=== PATIENT | male | born 1970 | race Caucasian/White ===

== ENCOUNTER → 2016-12-07 | Outpatient (CLI) | payer BC ==
--- NOTE | 2016-12-07 19:05 | MR ---
EXAMINATION TYPE: MR knee LT wo con DATE OF EXAM: 12/07/2016 6:28 PM COMPARISON: Plain film November 2006 HISTORY: Lt knee pain anterior/lateral since Aug 2016, no trauma TECHNIQUE: Multiplanar, multisequence imaging of the left knee is performed without IV contrast. FINDINGS: MEDIAL MENISCUS: There is some increased signal within the posterior horn of the medial meniscus with out clear communication to the articular surface, some linear increased signal at the body level reynolds ck is thought likely to extend to the articular surface, there is some pseudoextrusion LATERAL MENISCUS: Anterior and posterior horns are intact without tear. CRUCIATE LIGAMENTS: The anterior and posterior cruciate ligaments are intact and unremarkable. COLLATERAL LIGAMENTS: The medial collateral ligament and lateral collateral ligament complex are inta ct and unremarkable. EXTENSOR MECHANISM: Visualized quadriceps and patellar tendons are intact. EFFUSION: No significant suprapatellar joint effusion. POPLITEAL CYST: No popliteal/mckinney cyst. TRICOMPARTMENT SPACES: Maintained CARTILAGE: No significant chondromalacia is evident. BONE MARROW SIGNAL: Abnormal increased signal present within the lateral femoral condyle, small subch ondral defect is present at the patellofemoral joint with low signal rim suggesting sclerosis OTHER: No additional significant abnormality is appreciated. IMPRESSION: Findings suggest posttraumatic change as described with a subchondral area of bone marrow edema, subc hondral defect, correlate for history of trauma, difficult to exclude a medial meniscus tear.
== END | disposition home or self-care (01) ==
LOC: RADMRIMAIN 17:45
PROVIDERS: ATTEND Orthopaedic Surgery
DX: M25.562 Pain in left knee (principal)

== ENCOUNTER → 2017-05-10 | Outpatient (CLI) | payer BC ==
[2017-05-10 16:08] LABS: EKG EKG PERFORMED
[2017-05-10 16:29] LABS: Basophils % (A) 0 %; CH 30.9; Eosinophils # (A) 0.2 k/uL (0-0.7); Eosinophils % (A) 2 %; HCT 48.4 % (39.0-53.0); HDW 2.35; HGB 16.3 gm/dL (13.0-17.5); Luc # (Auto) 0.28; Luc % (Auto) 3; Lymphocytes # (A) 2.6 k/uL (1.0-4.8); Lymphocytes % (A) 30 %; MCH 30.7 pg (25.0-35.0); MCHC 33.6 g/dL (31.0-37.0); MCV 91.3 fL (80.0-100.0); Mean Platelet Volume 8.5; Monocytes # (A) 0.7 k/uL (0-1.0); Monocytes % (A) 9 %; Neutrophils # (A) 4.8 k/uL (1.3-7.7); Neutrophils % (A) 56 %; RDW 12.7 % (11.5-15.5); WBC 8.5 k/uL (3.8-10.6); WBC (Perox) 8.08
[2017-05-10 16:48] LABS: Anion Gap 11 mmol/L; Carbon Dioxide 28 mmol/L (22-30); Chloride 104 mmol/L (98-107); Potassium 4.5 mmol/L (3.5-5.1); Sodium 143 mmol/L (137-145)
== END | disposition home or self-care (01) ==
LOC: LABPAT 15:59
PROVIDERS: ATTEND Orthopaedic Surgery
DX: Z01.818 Encounter for other preprocedural examination (principal)
CPT/HCPCS: 36415; 80051; 85025; 93005

== ENCOUNTER 2017-05-27 09:41 | Day surgery (SDC) | payer BC ==
[2017-05-20 15:48] VITALS: BMI 36.5
--- NOTE | 2017-05-27 07:14 | P.HPOR ---
History of Present Illness H&P Date: 05/27/17 Chief Complaint: 47-year-old patient seen with progressive left knee pain. Past Medical History Past Medical History: Hyperlipidemia, Sleep Apnea/CPAP/BIPAP History of Any Multi-Drug Resistant Organisms: None Reported Past Surgical History: Orthopedic Surgery Additional Past Surgical History / Comment(s): rt knee arthroscopy Past Anesthesia/Blood Transfusion Reactions: No Reported Reaction Smoking Status: Never smoker - Past Family History Father Family Medical History: Cancer Medications and Allergies Home Medications Medication Instructions Recorded Confirmed Type Simvastatin [Zocor] 5 mg PO HS 05/20/17 05/20/17 History Allergies Allergy/AdvReac Type Severity Reaction Status Date / Time No Known Allergies Allergy Verified 05/20/17 15:39 Physical Examination Osteopathic Statement: *. No significant issues noted on an osteopathic structural exam other than those noted in the History and Physical/Consult. Range of motion -3-95. Mild intra-articular effusion. Tenderness medial joint line. Positive medial Anne's. Crepitus along the medial patellofemoral compartments with range of motion. Ligaments are stable. Hip rotations without pain. Distal neurovascular exam is intact. Results X-ray left knee 04/28/17 mild osteoarthritis MRI left knee 12/07/16 abnormal signal medial meniscus Assessment and Plan Plan: Assessment: Internal drainage left knee with medial meniscal tear Plan: Arthroscopy left knee with partial meniscectomy and debridement
[~2017-05-27 09:41] MED LIST: DEXAMETHASONE SOD PHOSPHATE 10 MG/ML 1 ML VIAL IV ONE; LACTATED RINGERS 1,000 ML IV SCH; MIDAZOLAM 2 MG/2 ML VIAL IV PRN; ONDANSETRON 4 MG/2 ML VIAL IVP ONE; ceFAZolin 2 GM in SODIUM CHLORIDE 0.9% 100 ML IVPB ONE
[2017-05-27] MEDS ORDERED: LIDOCAINE 1% 20 ML VIAL (10MG/ML) FOR IV START INTRADERMA ONE (11:25)
[2017-05-27] MEDS ORDERED: MIDAZOLAM 2 MG/2 ML VIAL ONE (12:07)
[2017-05-27] MEDS ORDERED: fentaNYL (PF) 50 MCG/ML 2 ML AMP ONE (12:07)
[2017-05-27] MEDS ORDERED: PROPOFOL 10 MG/ML 20 ML VIAL IV ONE (12:07)
[2017-05-27] MEDS ORDERED: LIDOCAINE 1% INJ 10MG/ML (20 ML MDV) ONE (12:07)
[2017-05-27] MEDS ORDERED: BUPIVACAIN-EPI 0.25%-1:200,000 30 ML VIAL INTRAARTIC ONE (12:07)
[2017-05-27] MEDS ORDERED: KETOROLAC 30 MG/ML 1 ML VIAL ONE (12:07)
[2017-05-27] MEDS ORDERED: HYDROmorphone (PF) 1 MG/ML ONE (12:07)
--- NOTE | 2017-05-27 13:06 | P.OP ---
Date of Procedure: 05/27/17 Preoperative Diagnosis: Internal derangement left knee Postoperative Diagnosis: 1. Tear medial meniscus left knee 2. Grade 2/3 chondromalacia medial femoral condyle left knee 3. Grade 4 chondromalacia femoral sulcus left knee 4. Loose body left knee 5. Reactive synovitis medial and suprapatellar compartments left knee Procedure(s) Performed: 1. Arthroscopic partial medial meniscectomy left knee 2. Arthroscopic chondroplasty medial femoral condyle left knee 3. Arthroscopic chondroplasty femoral sulcus left knee with microfracture 4. Arthroscopic removal loose body left knee 5. Arthroscopic partial synovectomy medial and suprapatellar compartments left knee Implants: Anesthesia: GETA, local Surgeon: Edgard Carmona Estimated Blood Loss (ml): 10 Pathology: none sent Condition: stable Disposition: PACU Indications for Procedure: 47-year-old patient seen with progressive left knee pain. After treatment options were discussed, he elected to proceed with arthroscopy. Operative Findings: see description of procedure Description of Procedure: Patient was taken to the operative suite. Patient underwent a general anesthetic by the department of anesthesia. Patient was given preoperative antibiotics. The left lower extremity was placed in a well-padded arthroscopic leg smith. The left leg was prepped and draped in the normal sterile orthopedic fashion. A lateral parapatellar and suprapatellar incision was made. Trochars were inserted. Arthroscopy was initiated. Suprapatellar pouch revealed thick reactive synovitis. The patellofemoral joint appeared to articulate congruently. There was an area of grade 4 chondromalacia of the lateral femoral sulcus with bony exposure and large osteochondral tears present. The scope was guided into the medial gutter. No loose bodies or plica were identified. The scope was then guided into the medial compartment. A medial parapatellar incision was made. Trocar inserted followed by probe. I immediately encountered a loose body measuring 1 cm x 1 cm. I introduced a loose body forceps and was able to extract without difficulty. No additional loose bodies were noted in the medial compartment. There was a radial tear posterior horn medial meniscus. An area of grade 2/3 chondromalacia medial femoral condyle with some osteochondral tears present. There was reactive synovitis anteriorly. I now performed a partial medial meniscectomy down to stable tissue. A chondroplasty of the medial femoral condyle was performed followed by partial synovectomy. The residual meniscus and osteochondral surface was stable. Scope and probe were then guided into the intercondylar notch. Cruciates were identified, probed and found to be able. The scope and probe were then guided into lateral compartment. Lateral meniscus was probed and found to be stable. Mild grade 1 chondromalacia changes lateral compartment with no osteochondral tears. No loose bodies or reactive synovitis. The scope was in guided back into the suprapatellar compartment. I introduced a motorized shaver into the super patellar compartment debriding out some piecemeal fragments of meniscus. I performed a chondroplasty of that femoral sulcus getting down to good peripheral osteochondral tissue. I performed a partial synovectomy. At this point I decided post with microfracture to that area of exposed bone in the lateral femoral sulcus. A microfracture was performed without difficulty. The area was again cleaned up with a motorized shaver. The residual osteochondral surface was again found to be stable. I took more look on the entire knee, no residual debris or loose bodies were identified. Instruments were now removed from the joint. The joint was infiltrated with .25% Marcaine. Steri-Strips were applied to the portal sites. Sterile dressings were applied. The patient was placed into a JORDYN hose. No tourniquet was utilized. The patient was awakened, transferred to a bed and taken to recovery stable satisfactory condition.
[2017-05-27 13:10] VITALS: TEMP 97.7
[2017-05-27] MEDS: HYDROmorphone 1 MG/ML 1 ML SYRINGE IVP PRN ×2 (13:33→13:41)
[2017-05-27] MEDS ORDERED: LACTATED RINGERS 1,000 ML IV ONE (14:18)
[2017-05-27] MEDS ORDERED: HYDROcodone/APAP 7.5-325MG 1 EACH TAB PO ONE (14:30)
[2017-05-27 15:28] VITALS: BP 121/81; PULSE 79; RESP 18
== END 2017-05-27 15:49 | disposition home or self-care (01) ==
LOC: OR 09:41
PROVIDERS: ATTEND Orthopaedic Surgery
DX: S83.242A Other tear of medial meniscus, current injury, left knee, initial encounter (principal); X58.XXXA Exposure to other specified factors, initial encounter; M94.262 Chondromalacia, left knee; M23.42 Loose body in knee, left knee; M65.862 Other synovitis and tenosynovitis, left lower leg; E78.5 Hyperlipidemia, unspecified; G47.33 Obstructive sleep apnea (adult) (pediatric); Z99.89 Dependence on other enabling machines and devices; Z79.899 Other long term (current) drug therapy
CPT/HCPCS: 29881; 29879; J1100; J0690; J2405; J1170

== ENCOUNTER → 2018-07-21 | Outpatient (CLI) | payer BC ==
--- NOTE | 2018-07-21 17:46 | PN ---
PROGRESS NOTE DATE OF SERVICE: 07/21/2018 48-year-old gentleman has been followed [facility] for treatment of obstructive sleep apnea-hypopnea syndrome. Patient continued to use his CPAP equipment every night for the whole night. Occasionally, according to his , he has snoring. He increased his weight on about 47 pounds compared with the weight 2 years ago. [place] Sleepiness Scale today is 7, which is in normal range. I checked his CPAP unit. CPAP pressure is 12 cm of water. Usage is 100% of the time for more than 4 hours. Average usage is 7.2 hours. Leak is 10 L/minutes which is normal range. Apnea-hypopnea index 1.1, which is perfect. MEDICATIONS: Testosterone injections 2 times per month, simvastatin, atenolol, doxepin. Since June of 2017, the patient started to increase his weight and evaluation by primary care physician showed low level of testosterone. Subsequently he is now on replacement of testosterone with 2 injection per months. PHYSICAL EXAM: Patient in no distress. BP 142/92, HR 62, RR 16, height 5 feet 8 inches, weight 267, BMI 40.5, temperature 98.7, oxygen saturation on room air 95%. Oropharynx: Extremely low position of soft palate. ABDOMEN: Obese. Neck: Supple, no JVD. Thyroid is not palpable. LUNGS Clear to percussion and to auscultation. Good air exchange. No wheezing or rhonchi. HEART S1, S2 regular. No murmurs, gallops, or rubs. ABDOMEN: Obese. Soft and nontender. Bowel sounds are present. No organomegaly appreciated. EXTREMITIES No clubbing or cyanosis. 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 Cranial nerves 2 to 7 intact. There is no fasciculation or atrophy. noted. No focal deficits observed. Neck 19 inches in circumference. IMPRESSION: 1. Obstructive sleep apnea-hypopnea syndrome. Patient demonstrated 100% compliance with treatment benefitting from treatment. 2. Obesity, patient increased his weight on 47 pounds since previous visit. 3. Low level of testosterone on testosterone replacement therapy. 4. Hyperlipidemia. 5. Hypertension. PLAN: 1. Patient will continue to use CPAP equipment every night for the whole night. 2. I increased pressure to 13 cm of water. Because of patient's snoring. 3. Aggressive losing weight program. 4. Sleep hygiene with time and for at least 8 hours. 5. No driving if feeling sleepiness. Thank you very much for allowing me to participate in management of your patient. Sincerely, Deondre Starr MD, PhD, FAASM Diplomat of [employer] [place] [place] [employer] Clerical Manager of [facility] [place] MMODL / JOSE LUISN: [id number] /
== END | disposition home or self-care (01) ==
LOC: SLEEP 16:26
PROVIDERS: ATTEND Internal Medicine
DX: G47.33 Obstructive sleep apnea (adult) (pediatric) (principal); E66.9 Obesity, unspecified; E78.5 Hyperlipidemia, unspecified; I10 Essential (primary) hypertension; Z68.41 Body mass index [BMI] 40.0-44.9, adult; Z99.89 Dependence on other enabling machines and devices; Z79.899 Other long term (current) drug therapy

== ENCOUNTER 2019-03-08 17:50 | Inpatient (IN) | payer BC ==
[2019-03-08] MEDS ORDERED: ATORVASTATIN 80 MG TAB PO STA (17:58)
[2019-03-08] MEDS ORDERED: HEPARIN SODIUM,PORCINE 5,000 UNIT/ML 1 ML VIAL IV ONE (18:04)
--- NOTE | 2019-03-08 18:09 | ED ---
Chest Pain HPI - General Chief Complaint: Chest Pain Stated Complaint: Chest Pain Time Seen by Provider: 03/08/19 17:50 Source: patient, family, EMS, RN notes reviewed Mode of arrival: EMS Limitations: no limitations - History of Present Illness Initial Comments: This a 49-year-old male with essentially benign past medical history but a family history significant for heart disease who had the onset while at work today of 08/31 midsternal left chest pain pressure and tight nature he has sweats with it no other symptoms. He finally went to outpatient clinic EKG was performed showing some possibility of ST elevations. He was given 324 aspirin and nitroglycerin with no relief. EMS was called he was transported here for evaluation. In route he was given 2 additional nitroglycerin as well as 100 mg of fentanyl. The pain went from a 08/31-05/01. He still complains of heaviness to his chest. MD Complaint: chest pain - Related Data Home Medications Medication Instructions Recorded Confirmed Anastrozole [Arimidex] 1 mg PO MOTUWETHFR 03/08/19 03/08/19 Sildenafil Citrate [Viagra] 100 mg PO DAILY PRN 03/08/19 03/08/19 Simvastatin [Zocor] 20 mg PO HS 03/08/19 03/08/19 Testosterone Cypionate 200 mg IM Q14D 03/08/19 03/08/19 [Depo-Testosterone] Allergies Allergy/AdvReac Type Severity Reaction Status Date / Time acetaminophen [From [place]] AdvReac Confusion Verified 03/08/19 18:01 hydrocodone [From [place]] AdvReac Confusion Verified 03/08/19 18:01 Review of Systems ROS Statement: Those systems with pertinent positive or pertinent negative responses have been documented in the HPI. ROS Other: All systems not noted in ROS Statement are negative. EKG Findings - EKG Results: EKG: interpreted by ERMD, sinus rhythm (Sinus rhythm rate 71 appear interval 148 worship 80 QT since QTC 360/[address] configuration there is equivocal elevations in leads 2 also V2 V3. This is consistent with the EKG submitted from the clinic as well as acetaminophen by EMS.) Past Medical History Past Medical History: No Reported History History of Any Multi-Drug Resistant Organisms: None Reported Past Surgical History: Orthopedic Surgery Additional Past Surgical History / Comment(s): sylvester knee Past Psychological History: No Psychological Hx Reported Smoking Status: Never smoker Past Alcohol Use History: Rare Past Drug Use History: None Reported General Exam - General Exam Comments Initial Comments: This a well-developed well-nourished awake alert oriented times female he is anxious Limitations: no limitations General appearance: alert, anxious, in distress Head exam: Present: atraumatic, normocephalic, normal inspection Eye exam: Present: normal appearance, PERRL, EOMI. Absent: scleral icterus, conjunctival injection, periorbital swelling ENT exam: Present: normal exam, mucous membranes moist Neck exam: Present: normal inspection. Absent: tenderness, meningismus, lymphadenopathy Respiratory exam: Present: normal lung sounds bilaterally. Absent: respiratory distress, wheezes, rales, rhonchi, stridor Cardiovascular Exam: Present: regular rate, normal rhythm, normal heart sounds. Absent: systolic murmur, diastolic murmur, rubs, gallop, clicks GI/Abdominal exam: Present: soft, normal bowel sounds. Absent: distended, tenderness, guarding, rebound, rigid Extremities exam: Present: normal inspection, full ROM, normal capillary refill. Absent: tenderness, pedal edema, joint swelling, calf tenderness Back exam: Present: normal inspection Neurological exam: Present: alert, oriented X3, CN II-XII intact Psychiatric exam: Present: normal affect, normal mood Skin exam: Present: warm, dry, intact, normal color. Absent: rash Course Vital Signs 03/08/19 03/08/19 03/08/19 17:51 18:11 18:38 Temperature 98.2 F 98.2 F Pulse Rate 75 77 77 Respiratory 18 18 18 Rate Blood Pressure 136/101 139/99 139/99 O2 Sat by Pulse 94 L 96 96 Oximetry - Reevaluation(s) Reevaluation #1: 03/08/19 18:08 court monitor: court monitor was instituted due to the patient's chest pain to rule out dysrhythmia. Patient did have a sinus rhythm of 74 with occasional unifocal PVCs. Reevaluation #2: 03/08/19 18:08 I did call a STEMI alert on this patient and assume his EKG was performed I did discuss the case with Dr. Bueno. Due to the patient's symptoms and the equivocal nature of the EKG the patient will go to [facility] for catheterization. I did discuss this with him and his family. Reevaluation #3: 04/17/19 18:13 Evaluation the patient he states his pain is down to a 4-5/10 in severity. Nitropaste will be ordered Reevaluation #4: 03/08/19 18:55 I did discuss the findings with Dr. Mcallister will be the admitting physician. Critical Care Time Critical Care Time: Yes Critical Care Time: 30 minutes of critical care time which includes initial presentation with history physical labs x-rays discussed with paramedics regarding findings review charting was available including EMS EKG and the EKG submitted from the office. Frequent reevaluation of the patient. Discussion with Dr. Mcallister and Dr. Rashawn peck, some admission orders and documentation of the above. Disposition Clinical Impression: Acute coronary syndrome, ST elevation myocardial infarction (STEMI) Disposition: ADMITTED IP TO THIS HOSP Condition: Fair
[2019-03-08 18:11] LABS: MCHC 33.2 g/dL (31.0-37.0); MCV 90.3 fL (80.0-100.0); Mean Platelet Volume 8.3; Platelet Count 190 k/uL (150-450); RBC 6.31 m/uL (4.30-5.90); RDW 13.7 % (11.5-15.5); WBC 14.3 k/uL (3.8-10.6)
[2019-03-08] MEDS ORDERED: NITROGLYCERIN OINT 1 INCH/GM PACKET TOPICAL STA (18:12)
--- NOTE | 2019-03-08 18:14 | XR ---
EXAMINATION: XR chest 1V portable DATE AND TIME: 03/08/2019 6:08 PM CLINICAL INDICATION: PHH; Chest Pain TECHNIQUE: AP upright portable COMPARISON: None FINDINGS: The overlying soft tissues are prominent. The hemidiaphragms are elevated, consistent with low lung i nflation at the moment of x-ray exposure. Given these 2 factors, the lungs appear to be clear as seen . The pleural spaces are negative. The cardiac silhouette is not enlarged. The skeletal structures and soft tissues are negative for acute findings. IMPRESSION: NO ACUTE PROCESS.
[2019-03-08 18:17] LABS: HGB 18.9 gm/dL (13.0-17.5)
[2019-03-08] MEDS ORDERED: fentaNYL (PF) 50 MCG/ML 2 ML AMP ONE (18:17)
[2019-03-08] MEDS ORDERED: LIDOCAINE 1% INJ 10MG/ML (20 ML MDV) ONE (18:17)
[2019-03-08 18:23] LABS: ALT 42 U/L (21-72); AST 49 U/L (17-59); Albumin 4.8 g/dL (3.5-5.0); Alkaline Phosphatase 87 U/L (38-126); Anion Gap 12 mmol/L; Blood Urea Nitrogen 21 mg/dL (9-20); Calcium 9.7 mg/dL (8.4-10.2); Carbon Dioxide 24 mmol/L (22-30); Chloride 105 mmol/L (98-107); Creatine Kinase 387 U/L (55-170); Glucose 97 mg/dL (74-99); Potassium 4.5 mmol/L (3.5-5.1); Sodium 141 mmol/L (137-145); Total Bilirubin 0.9 mg/dL (0.2-1.3); Total Protein 7.7 g/dL (6.3-8.2)
[2019-03-08] MEDS ORDERED: SODIUM CHLORIDE 0.9% 1,000 ML IV ONE (18:25)
[2019-03-08] MEDS ORDERED: MIDAZOLAM 2 MG/2 ML VIAL IV ONE (18:33)
[2019-03-08] MEDS ORDERED: fentaNYL (PF) 50 MCG/ML 2 ML AMP IV ONE (18:33)
[2019-03-08 18:35] LABS: Creatine Kinase MB 2.4 ng/mL (0.0-2.4); Troponin I <0.012 ng/mL (0.000-0.034)
[2019-03-08] MEDS ORDERED: LIDOCAINE 1% INJ 10MG/ML (20 ML MDV) SQ ONE (18:36)
[2019-03-08] MEDS ORDERED: IOPAMIDOL-370 50ML BTL INJ ONE (18:47)
[2019-03-08] MEDS ORDERED: IOPAMIDOL-370 100ML BTL INJ ONE (18:47)
[2019-03-08] MEDS ORDERED: RX INFO: IV CONTRAST WAS GIVEN 1 EACH MISC MISCELLANE PRN (18:52)
--- NOTE | 2019-03-08 19:40 | CONS ---
CONSULTATION CHIEF COMPLAINT: Chest pain. Raymon is a 49-year-old gentleman with history of dyslipidemia, erectile dysfunction, who presented to hospital complaining of chest pain. He describes it as precordial chest pressure, 4/10 intensity that came on suddenly this afternoon. It persisted, was associated with some difficulty in breathing and diaphoresis. EKG revealed sinus rhythm with nonspecific ST-T wave changes. Due to persistent symptoms of chest pain in spite of receiving fentanyl, the ER doctor consulted us and we decided to proceed with cardiac catheterization. Patient had been explained the risks, benefits and alternatives, understood and accepted. PAST MEDICAL HISTORY: Significant for dyslipidemia. CURRENT MEDICATIONS: Include testosterone, Zocor 20 daily, Viagra, and Arimidex. ALLERGIES: NORCO. FAMILY HISTORY: Negative for premature coronary artery disease. SOCIAL HISTORY: Negative for current smoking, EtOH abuse, or drug abuse. REVIEW OF SYSTEMS: HEENT is unremarkable. Cardiac as described above. Respiratory negative. GI negative. Genitourinary: Negative. Allergy/Immunology: Negative. Skin: Negative. Musculoskeletal significant for arthritis. Psychosocial negative. Endocrine: Negative. Derm negative. Constitutional negative. Oncological negative. NETWORK TECHNOLOGY INSTRUCTOR: Negative. Rest of the system review is not relevant. EXAM: Patient is comfortable at rest. Afebrile. Heart rate is 70 beats per minute. Blood pressure is 139/90, respiratory rate is 18, O2 sat is 96% on 2 L. there is no jugular venous distention. Carotid upstroke is normal. There is no bruit. Chest exam reveals good air entry bilaterally. Heart exam reveals first and second heart sounds. No gallop. No murmur. No rub. Abdomen is soft, nontender. Exam of extremities did not reveal edema. Peripheral pulses are felt. LABS: Show potassium of 4.5, creatinine is 1. Troponin is negative. White cell count is elevated at 14.3, hemoglobin is 18.9. ASSESSMENT: 1. Unstable angina. 2. Dyslipidemia. PLAN: The patient is on heparin due to persistent chest pain. We advised him to undergo cardiac catheterization. He understands risks, benefits and alternatives. MMODL / IJN: [id number] /
--- NOTE | 2019-03-08 19:42 | CC ---
CARDIAC CATHETERIZATION REPORT INDICATION: Unstable angina. DESCRIPTION OF PROCEDURE: After obtaining informed consent, left heart catheterization, coronary angiogram are performed via the right femoral artery using standard Ro catheters. The patient tolerated the procedure well without any obvious immediate complications. A femoral angiogram was performed and Angio-Seal was deployed for hemostasis. Patient received moderate conscious sedation. Total sedation time was 15 minutes. HEMODYNAMICS: Left ventricular end-diastolic pressure is 16-18 mm. There is no significant gradient across aortic valve. LEFT VENTRICULOGRAM: Left ventriculogram is performed in PACK position and shows normal left ventricular size and systolic function with ejection fraction 70%. There are no focal wall motion abnormalities noted. Ascending aorta appears within normal limits. ANGIOGRAPHIC DATA: LEFT MAIN CORONARY ARTERY: Left main coronary artery is a normal-sized vessel and is free of stenosis. Divides into left anterior descending coronary artery and circumflex coronary artery. LEFT ANTERIOR DESCENDING CORONARY ARTERY: LAD shows the proximal LAD it appears as though there was a plaque rupture, but there are no focal significant stenotic lesions. It is also possible that there was a small spontaneous dissection in the LAD. In any event distal flow is normal. LV function is normal. There are no wall motion abnormalities. CIRCUMFLEX CORONARY ARTERY: Circumflex coronary artery is normal. RIGHT CORONARY ARTERY: Right coronary artery is a large dominant vessel and is free of significant stenosis. CONCLUSIONS: Normal LV function. Plaque rupture versus spontaneous dissection in the proximal LAD. PLAN: Patient appears comfortable. I will treat him with aspirin, Plavix, simvastatin. Follow a D-dimer on him. Obtain a 2D echo looking for other causes of chest pain in the morning. MMODL / IJN: [id number] /
[2019-03-08 20:07] VITALS: BMI 40.8
[2019-03-08] MEDS: LORazepam 2 MG/ML INJ IV PRN (21:27)
[2019-03-08] MEDS: ACETAMINOPHEN TAB 325 MG TAB PO PRN (23:13)
[2019-03-08] MEDS: SODIUM CHLORIDE 0.9% 1,000 ML IV SCH (23:16)
[2019-03-08] MEDS: CLOPIDOGREL 75 MG TAB PO SCH (23:16)
[2019-03-09] MEDS ORDERED: DILTIAZEM DRIP BOLUS FROM BAG 1 MG SOLN IV ONE (04:01)
[2019-03-09] MEDS ORDERED: DILTIAZEM 125 MG in SODIUM CHLORIDE 0.9% 100 ML IV SCH (04:15)
[2019-03-09 07:01] LABS: Basophils % (A) 0 %; Eosinophils # (A) 0.3 k/uL (0-0.7); Eosinophils % (A) 3 %; HGB 18.3 gm/dL (13.0-17.5); Lymphocytes # (A) 1.8 k/uL (1.0-4.8); Lymphocytes % (A) 19 %; MCH 29.4 pg (25.0-35.0); MCHC 33.1 g/dL (31.0-37.0); Mean Platelet Volume 7.6; Monocytes % (A) 11 %; Neutrophils # (A) 6.1 k/uL (1.3-7.7); Neutrophils % (A) 64 %; Platelet Count 174 k/uL (150-450); RDW 12.6 % (11.5-15.5); WBC 9.6 k/uL (3.8-10.6)
[2019-03-09 07:06] LABS: HCT 55.2 % (39.0-53.0)
[2019-03-09] MEDS ORDERED: APIXABAN 5 MG TAB PO SCH ×2 (09:00→21:00)
[2019-03-09] MEDS: METOPROLOL TARTRATE 25 MG TAB PO SCH ×2 (09:03→21:45)
[2019-03-09] MEDS: CLOPIDOGREL 75 MG TAB PO SCH (09:03)
[2019-03-09] MEDS: ASPIRIN 81 MG PO SCH (09:03)
[2019-03-09] MEDS: SODIUM CHLORIDE 0.9% 1,000 ML IV SCH (09:04)
--- NOTE | 2019-03-09 11:40 | ECHOF ---
Referral Reason:cp MEASUREMENTS -------- HEIGHT: 172.7 cm WEIGHT: 116.6 kg BP: 140/70 RVIDd: 2.7 cm (< 3.3) IVSd: 1.4 cm (0.6 - 1.1) LVIDd: 3.3 cm (3.9 - 5.3) LVPWd: 1.6 cm (0.6 - 1.1) IVSs: 1.9 cm LVIDs: 2.5 cm LVPWs: 1.6 cm LA Diam: 3.2 cm (2.7 - 3.8) Ao Diam: 3.7 cm (2.0 - 3.7) AV Cusp: 1.9 cm (1.5 - 2.6) LA Diam: 4.1 cm (2.7 - 3.8) MV EXCURSION: 18.048 mm (> 18.000) MV EF SLOPE: 104 mm/s (70 - 150) EPSS: 0.3 cm MV E Santos: 0.86 m/s MV DecT: 177 ms MV A Santos: 0.25 m/s MV E/A Ratio: 3.51 RAP: 5.00 mmHg RVSP: 22.55 mmHg FINDINGS -------- Sinus rhythm. This was a techncally difficult study with suboptimal views, , Lumason utilized for enhancement of im ages. The left ventricular size is normal. There is moderate concentric left ventricular hypertrophy. O verall left ventricular systolic function is normal with, an EF between 55 - 60 %. The right ventricle is normal in size. The left atrial size is normal. The right atrial size is normal. 5.0mg OF Lumason UTLIZED: 2 OR MORE WALL SEGMENTS NOT VISUALIZED. The aortic valve is trileaflet, and appears structurally normal. No aortic stenosis or regurgitation. Mild mitral annular calcification present. Mild mitral regurgitation is present. Mild tricuspid regurgitation present. There is no evidence of pulmonary hypertension. The right v entricular systolic pressure, as measured by Doppler, is 22.55mmHg. There is no pulmonic regurgitation present. The aortic root size is normal. There is no pericardial effusion. CONCLUSIONS -------- 1. This was a techncally difficult study with suboptimal views, , Lumason utilized for enhancement of images. 2. The left ventricular size is normal. 3. There is moderate concentric left ventricular hypertrophy. 4. Overall left ventricular systolic function is normal with, an EF between 55 - 60 %. 5. The right ventricle is normal in size. 6. The left atrial size is normal. 7. The right atrial size is normal. 8. 5.0mg OF Lumason UTLIZED: 2 OR MORE WALL SEGMENTS NOT VISUALIZED. 9. Interatrial Septum not well visulized. 10. The aortic valve is trileaflet, and appears structurally normal. No aortic stenosis or regurgitat ion. 11. Mild mitral annular calcification present. 12. Mild mitral regurgitation is present. 13. Mild tricuspid regurgitation present. 14. There is no evidence of pulmonary hypertension. 15. The right ventricular systolic pressure, as measured by Doppler, is 22.55mmHg. 16. There is no pulmonic regurgitation present. 17. The aortic root size is normal. 18. There is no pericardial effusion. TOLL TRANSMISSION WORKER: Janna Leo RDCS
[2019-03-09] MEDS ORDERED: PROPAFENONE 150 MG TAB PO STA (13:07)
--- NOTE | 2019-03-09 14:57 | P.PN ---
Subjective Progress Note Date: 03/09/19 This is a 49-year-old gentleman with history of hyperlipidemia, erectile dysfunction, who presented to the hospital with symptoms of chest discomfort. He was seen in consultation by Dr. Bueno and taken to the cardiac catheterization lab yesterday. Cardiac catheterization showed normal LV function. Plaque rupture versus spontaneous dissection in the proximal LAD. Medical therapy advised. This morning patient went into atrial fibrillation with a rapid ventricular response, subsequent to that he's converted to normal sinus rhythm. Patient does state that over the past number of years he does get intermittent palpitations and feels like his heart is racing fast. He has a Holter monitor in the past but has never been told to have atrial fibrillation. An echo cardiac gram with Doppler study was performed which revealed an ejection fraction of 55-60%. Blood pressure 110/80 with a heart rate in the 90s, 93% on room air. White Blood cell count 9.6, hemoglobin 18.3, platelet count 174. Patient continues to complain of mild chest discomfort, he states it is only present on deep breathing today. Sed rate is normal, d-dimer normal. Objective - Vital Signs Vital signs: Vital Signs Temp 98.0 F 03/09/19 08:00 Pulse 93 03/09/19 12:00 Resp 18 03/09/19 12:00 BP 110/85 03/09/19 12:00 Pulse Ox 93 L 03/09/19 12:00 Intake & Output 03/08/19 03/09/19 03/09/19 18:59 06:59 18:59 Intake Total 900 610 600 Balance 900 610 600 Weight 121.699 kg 116.9 kg Intake: IV 900 Intake, IV Titration 610 Amount Diltiazem 125 mg In 10 Sodium Chloride 0.9% 100 ml @ 5 MG/HR 5 mls/hr IV .Q24H RAMBO Rx#:[id number] Sodium Chloride 0.9% 1, 600 000 ml @ 75 mls/hr IV . [id number] RAMBO Rx#:[id number] Oral 600 Other: Voiding Method Urinal Urinal # Voids 800 2 - Exam PHYSICAL EXAMINATION: GENERAL: 49-year-old gentleman in no acute distress at the time of my examination HEENT: Head is atraumatic, normocephalic. Pupils equal, round. Sclera anicteric. Conjunctiva are clear. Mucous membranes of the mouth are moist. Neck is supple. There is no elevated jugular venous pressure. No carotid bruit is heard. HEART EXAMINATION: Heart S1, S2 normal. No murmur or gallop heard. CHEST EXAMINATION: Lungs are clear to auscultation and precussion. No chest wall tenderness is noted on palpation or with deep breathing. ABDOMEN: Soft, nontender. Bowel sounds are heard. No organomegaly noted. EXTREMITIES: 2+ peripheral pulses with no evidence of peripheral edema and no c hardy tenderness noted. Right groin soft, no evidence of any hematoma. NEUROLOGIC patient is awake, alert and oriented 3 . . - Labs CBC & Chem 7: 03/09/19 06:35 03/08/19 18:00 Labs: Abnormal Lab Results - Last 24 Hours (Table) 03/08/19 03/08/19 03/08/19 Range/Units 18:00 18:00 18:00 WBC 14.3 H (3.8-10.6) k/uL RBC 6.31 H (4.30-5.90) m/uL Hgb 18.9 H (13.0-17.5) gm/dL Hct 57.0 H (39.0-53.0) % BUN 21 H (9-20) mg/dL Total Creatine Kinase 387 H (55-170) U/L 03/09/19 Range/Units 06:35 WBC (3.8-10.6) k/uL RBC 6.20 H (4.30-5.90) m/uL Hgb 18.3 H (13.0-17.5) gm/dL Hct 55.2 H (39.0-53.0) % BUN (9-20) mg/dL Total Creatine Kinase (55-170) U/L Assessment and Plan Plan: Assessment and plan #1 chest pain, status post cardiac catheterization which revealed a normal left ventricular systolic function, plaque rupture versus spontaneous dissection of approximately. #2 paroxysmal atrial fibrillation, currently in normal sinus rhythm #3 hyperlipidemia Plan We will continue the patient on aspirin and Plavix, no anticoagulation at this time. We will put the patient on Rythmol 150 3 times a day. Add a statin. Continue beta jason. Plan for discharge home in 24 hours if stable. DNP note has been reviewed, I agree with a documented findings and plan of care. Patient was seen and examined.
[2019-03-09] MEDS: PROPAFENONE 150 MG TAB PO SCH ×2 (16:43→22:53)
[2019-03-09] MEDS: ACETAMINOPHEN TAB 325 MG TAB PO PRN (16:43)
--- NOTE | 2019-03-09 19:41 | HP ---
HISTORY AND PHYSICAL DATE OF ADMISSION: 03/08/2019 DATE OF SERVICE: 03/09/2019 PRESENTING COMPLAINT: Chest pressure, tightening. HISTORY OF PRESENTING COMPLAINT: This is a very pleasant 49-year-old patient of Dr. Shook. Chronic stable medical conditions include hyperlipidemia, erectile dysfunction and hypotestosteronism. Patient yesterday developed chest tightening on the left side that lasted for a good few hours. The patient was quite short of breath. He broke out in a sweat. Not dizzy. Not lightheaded. He was given nitroglycerin, which gave him a headache but no relief from pain. He did feel better with morphine. Pain was present for a few hours. Today patient was taken to the cardiac catheterization lab by Dr. Davion Monique. Patient may have had a CAD. The patient had a plaque rupture. The patient also was noted to be in and out of atrial fibrillation. Patient's sister is at the bedside. No prior cardiac history. REVIEW OF SYSTEMS: CONSTITUTIONAL: Tired. HEENT: None. RESPIRATORY: As above. CARDIOVASCULAR: As above. GASTROINTESTINAL: None. GENITOURINARY: Erectile dysfunction. DERMATOLOGICAL: None. HEMATOLOGICAL: None. LYMPHATICS: None. PSYCHIATRY: None. NEUROLOGICAL: None. PAST HISTORY: 1. Hyperlipidemia. 2. Erectile dysfunction. 3. Hypotestosteronism. PAST SURGICAL HISTORY: Bilateral knee surgery. SOCIAL HISTORY: No smoking. Alcohol rarely. . 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 FAMILY HISTORY: Hypertension. HOME MEDICATIONS: Include: 1. Depo-Testosterone 200 mg IM every 14 days. 2. Zocor 20 mg at bedtime. 3. Viagra 100 mg p.o. daily p.r.n. 4. Arimidex 1 mg p.o. Wednesday, Wednesday, Wednesday, , Wednesday. ALLERGIES: NORCO. PHYSICAL EXAMINATION: Temperature 98, pulse 93, respiration 18, blood pressure 136/89, pulse ox 100% on room air. GENERAL APPEARANCE: Well built; BMI 39.2. Sitting up, awake. EYES: Pupils equal. Conjunctivae normal. HEENT: External appearance of nose and ears normal. Oral cavity normal. NECK: JVD not raised. Mass not palpable. RESPIRATORY: Effort normal. LUNGS: Fair air entry. CARDIOVASCULAR: First and second sounds normal. No edema. ABDOMEN: Soft, non-tender. Liver and spleen not palpable. LYMPHATIC: No lymph node palpable in neck or axillae. PSYCHIATRY: Mood and affect normal. NEUROLOGICAL: Pupils equal. Cranial nerves grossly intact. Power and sensation grossly intact. INVESTIGATIONS: White count 14.3, hemoglobin 18.9, platelets 190, potassium 4.5. BUN and creatinine are normal. Troponin x3 negative. TSH normal. ASSESSMENT: 1. Paroxysmal atrial fibrillation. Patient is in and out of the same. Currently running in sinus rhythm. 2. Hyperlipidemia. 3. Hypotestosteronism. 4. Obesity; body mass index 39.2. 5. Paroxysmal atrial fibrillation, recurrent. 6. Status post cardiac catheterization showing a plaque rupture. PLAN: The patient is currently on Eliquis, aspirin, Lipitor, Ativan, Lopressor, Rythmol, IV fluids. Care was discussed with the patient's sister at the bedside. Questions were answered. The patient was seen by Dr. Davion Monique from Cardiology. MMALICIAL / JOSE LUISN: [id number] /
[2019-03-09] MEDS: LORazepam 2 MG/ML INJ IV PRN (21:45)
[2019-03-09] MEDS: APIXABAN 5 MG TAB PO SCH (21:45)
[2019-03-10 05:11] VITALS: RESP 18
[2019-03-10] MEDS: SODIUM CHLORIDE 0.9% 1,000 ML IV SCH (05:44)
[2019-03-10 07:54] LABS: Basophils # (A) 0.1 k/uL (0-0.2); Basophils % (A) 1 %; Eosinophils # (A) 0.3 k/uL (0-0.7); Eosinophils % (A) 3 %; HGB 18.6 gm/dL (13.0-17.5); Lymphocytes # (A) 1.9 k/uL (1.0-4.8); Lymphocytes % (A) 22 %; MCH 30.5 pg (25.0-35.0); MCHC 33.6 g/dL (31.0-37.0); MCV 90.6 fL (80.0-100.0); Mean Platelet Volume 8.3; Monocytes # (A) 0.6 k/uL (0-1.0); Monocytes % (A) 7 %; Neutrophils # (A) 5.6 k/uL (1.3-7.7); Neutrophils % (A) 64 %; Platelet Count 180 k/uL (150-450); RDW 13.8 % (11.5-15.5); WBC 8.7 k/uL (3.8-10.6)
[2019-03-10 07:58] LABS: HCT 55.3 % (39.0-53.0)
[2019-03-10] MEDS: ASPIRIN 81 MG PO SCH (08:50)
[2019-03-10] MEDS: PROPAFENONE 150 MG TAB PO SCH (08:50)
[2019-03-10] MEDS: APIXABAN 5 MG TAB PO SCH (08:50)
[2019-03-10] MEDS: METOPROLOL TARTRATE 25 MG TAB PO SCH (08:56)
[2019-03-10] MEDS ORDERED: ATORVASTATIN 80 MG TAB PO SCH (09:00)
[2019-03-10] MEDS ORDERED: CLOPIDOGREL 75 MG TAB PO SCH (09:00)
--- NOTE | 2019-03-10 12:38 | P.PN ---
Subjective Progress Note Date: 03/10/19 This is a 49-year-old gentleman with history of hyperlipidemia, erectile dysfunction, who presented to the hospital with symptoms of chest discomfort. He was seen in consultation by Dr. Bueno and taken to the cardiac catheterization lab yesterday. Cardiac catheterization showed normal LV function. Plaque rupture versus spontaneous dissection in the proximal LAD. Medical therapy advised. This morning patient went into atrial fibrillation with a rapid ventricular response, subsequent to that he's converted to normal sinus rhythm. Patient does state that over the past number of years he does get intermittent palpitations and feels like his heart is racing fast. He has a Holter monitor in the past but has never been told to have atrial fibrillation. An echo cardiac gram with Doppler study was performed which revealed an ejection fraction of 55-60%. Blood pressure 110/80 with a heart rate in the 90s, 93% on room air. White Blood cell count 9.6, hemoglobin 18.3, platelet count 174. Patient continues to complain of mild chest discomfort, he states it is only present on deep breathing today. Sed rate is normal, d-dimer normal. 03/10/2019 Patient was seen and examined this morning, remaining in a normal sinus rhythm. He did have one further episode of atrial fibrillation yesterday and was put on Eliquis. Overall he feels well hemodynamically stable. Echo showed normal LV function Objective - Vital Signs Vital signs: Vital Signs Temp 97.6 F 03/10/19 04:00 Pulse 71 03/10/19 04:00 Resp 18 03/10/19 04:00 BP 115/83 03/10/19 04:00 Pulse Ox 93 L 03/10/19 04:00 Intake & Output 03/09/19 03/10/19 03/10/19 18:59 06:59 18:59 Intake Total 960 120 Balance 960 120 Weight 117.2 kg Intake: Oral 960 120 Other: Voiding Method Urinal Urinal # Voids 2 1 - Exam PHYSICAL EXAMINATION: GENERAL: 49-year-old gentleman in no acute distress at the time of my examination HEENT: Head is atraumatic, normocephalic. Pupils equal, round. Sclera anicteric. Conjunctiva are clear. Mucous membranes of the mouth are moist. Neck is supple. There is no elevated jugular venous pressure. No carotid bruit is heard. HEART EXAMINATION: Heart S1, S2 normal. No murmur or gallop heard. CHEST EXAMINATION: Lungs are clear to auscultation and precussion. No chest wall tenderness is noted on palpation or with deep breathing. ABDOMEN: Soft, nontender. Bowel sounds are heard. No organomegaly noted. EXTREMITIES: 2+ peripheral pulses with no evidence of peripheral edema and no calf tenderness noted. Right groin soft, no evidence of any hematoma. NEUROLOGIC patient is awake, alert and oriented 3 . . - Labs CBC & Chem 7: 03/10/19 07:15 03/08/19 18:00 Labs: Abnormal Lab Results - Last 24 Hours (Table) 03/10/19 Range/Units 07:15 RBC 6.10 H (4.30-5.90) m/uL Hgb 18.6 H (13.0-17.5) gm/dL Hct 55.3 H (39.0-53.0) % Assessment and Plan Plan: Assessment and plan #1 chest pain, status post cardiac catheterization which revealed a normal left ventricular systolic function, plaque rupture versus spontaneous dissection of approximately. #2 paroxysmal atrial fibrillation, currently in normal sinus rhythm #3 hyperlipidemia Plan We will continue the patient on aspirin Eliquis along with beta jason and Rythmol. Patient may be able to be discharged home from our perspective. We'll make him a follow-up appointment to see Dr. Bueno in the office post discharge. DNP note has been reviewed, I agree with a documented findings and plan of care. Patient was seen and examined.
[2019-03-10 14:46] VITALS: BP 139/94; PULSE 77; TEMP 98.7
--- NOTE | 2019-03-11 | DS ---
DISCHARGE SUMMARY DATE OF ADMISSION: March 08, 2019. DATE OF DISCHARGE: March 10, 2019. FINAL DIAGNOSES: 1. Paroxysmal atrial fibrillation, uncontrolled rate now in sinus rhythm. 2. Hyperlipidemia. 3. Hypotestosteronism. 4. Obesity BMI 39.2. PROCEDURE: Cardiac catheterization showing possible plaque rupture. HOSPITAL COURSE: This patient presented with chest tightness. Did undergo cardiac catheterization that showed a possibly plaque rupture. No other major blockage. Patient has been in and out of atrial fibrillation. Medications were adjusted. The patient doing much better, asymptomatic at the time of discharge up and about. CONSULTATION: Dr. Davion Monique from Cardiology. PROCEDURE PERFORMED: Cardiac cath by Dr. Davion Monique. The patient did have a 2-D echocardiogram that showed EF of 55-60 percent. EXAMINATION: Afebrile. Pulse 77, respiratory 16, blood pressure 139/94 pulse 95 percent. Lungs fair entry. Cardiovascular: 1st 2nd sounds normal. INVESTIGATIONS: Hemoglobin 18.6. Troponins are negative. TSH 2.4. DISCHARGE MEDICATIONS: 1. Arimidex 1 mg p.o. Wednesday, Wednesday, Wednesday, , Wednesday. 2. 200 mg every 14 days. 3. Eliquis 5 mg b.i.d. 4. Aspirin 81 mg p.o. daily. 5. Lipitor 80 mg p.o. daily. 6. Lopressor 25 mg p.o. b.i.d. 7. Rythmol 150 mg q.8. It may be noted that the patient's hemoglobin is running on the high side. He will need to be worked up further for the same as an outpatient. The patient is due to see Dr. Shook and I am sending this note to Dr. Shook for follow up. The patient should have repeat CBC and if need be, the patient should follow up with the rotor blade installer. Follow up with Dr. Shook on March 15, 2019; follow Dr. Cheyenne Monique on . MMODL / IJN: [id number] /
--- NOTE | 2019-03-13 11:54 | CDI ---
Documentation Clarification Form Date: 03/13/19 From: Ximena Olivia Phone: If you have a question regarding this query, please contact Maryanne Alcantar at [phone] to 5pm. Admit Date: 03/08/2019 6:01:00 PM Patient Name: Raymon Womack Visit Number: [id number] Discharge Date: 03/10/2019 3:07:00 PM ATTENTION: The Clinical Documentation Specialists (CDI) and [facility] Coding Staff appreciate your assistance in clarifying documentation. Please respond to the clarification below the line at the bottom and electronically sign. The CDI & [facility] Coding staff will review the response and follow-up if needed. Please note: Queries are made part of the Legal Health Record. If you have any questions, please contact the author of this message via ITS. Dr. Monique, The patient presented with chest tightness that lasted a few hours, shortness of breath and sweating. History/Risk Factors: The patient also had atrial fib on admission. The patient has a history of hyperlipidemia and hypotestosteronism. Clinical Indicators: Chest tightness, shortness of breath and sweating. Lab findings: Troponin I <0.012 x 4, BNP 30, BUN 21, Creatinine Kinase 387, WBC 14.3, Hgb/Hct 18.9/57.0 Radiology findings: No acute process. Vital Signs: T. 98.2, P. 75, R. 18, BP 136/101 Cardiac Cath: Plaque rupture versus spontaneous dissection in the proximal LAD. Treatment: Aspirin, Plavix and Simvastatin. In your professional opinion, can you please clarify if the plaque rupture caused? VA NSTEMI Type II VA Other Unstable angina Other, please specify Unable to determine NONSTEMI ___ MTDD
--- NOTE | 2019-04-03 14:52 | P.PN ---
Progress Note - Text Progress Note Date: 04/03/19 This is an addendum to the cardiology the documentation, as a clarification. It was felt that the patient had plaque rupture in the LAD which was likely the cause of his angina. Patient did not have a myocardial infarction. DNP note has been reviewed, I agree with a documented findings and plan of care. Patient was seen and examined.
== END 2019-03-10 15:07 | disposition home or self-care (01) | DRG 287 ==
LOC: EC 17:50 → 2SICU 18:01 → 3SCARD 18:54
PROVIDERS: ADMIT Hospitalist; ATTEND Hospitalist
PROC: B2111ZZ Fluoroscopy of Multiple Coronary Arteries using Low Osmolar Contrast (ICD-10-PCS; 2019-03-08)
PROC: B2151ZZ Fluoroscopy of Left Heart using Low Osmolar Contrast (ICD-10-PCS; 2019-03-08)
PROC: 4A023N7 Measurement of Cardiac Sampling and Pressure, Left Heart, Percutaneous Approach (ICD-10-PCS; principal; 2019-03-08 18:14)
DX: I25.110 Atherosclerotic heart disease of native coronary artery with unstable angina pectoris (principal); I25.83 Coronary atherosclerosis due to lipid rich plaque; I48.0 Paroxysmal atrial fibrillation; E66.9 Obesity, unspecified; E78.5 Hyperlipidemia, unspecified; N52.9 Male erectile dysfunction, unspecified; Z68.39 Body mass index [BMI] 39.0-39.9, adult; Z79.899 Other long term (current) drug therapy; Z88.6 Allergy status to analgesic agent; Z88.5 Allergy status to narcotic agent; Z82.49 Family history of ischemic heart disease and other diseases of the circulatory system
CPT/HCPCS: 71045; 80053; 82550; 82553; 83880; 84443; 84484; 85025; 85027; 85379; 85652; 93005; 93306; 93458; 94660; 96374; 99291

== ENCOUNTER 2019-04-24 11:14 | Observation (INO) | payer BC ==
[2019-04-24] MEDS ORDERED: ASPIRIN 81 MG PO STA (11:26)
--- NOTE | 2019-04-24 12:18 | ED ---
Chest Pain HPI - General Source: patient, RN notes reviewed Mode of arrival: ambulatory Limitations: no limitations <Ankur Martinez - Last Filed: 04/24/19 13:44> <Johan Steve - Last Filed: 04/24/19 14:22> - General Chief Complaint: Chest Pain Stated Complaint: CHEST PAIN, Hx AFIB Time Seen by Provider: 04/24/19 11:25 - History of Present Illness Initial Comments: 49-year-old male presents emergency Department with chief complaint of chest pain. Patient states that he's had increased congestion last 2 days with associated shortness of breath. Patient states that he has known A. fib and which she takes Eliquis for. Patient states that he has pain worsening when he lays down and increased shortness of breath. Patient denies any leg swelling no history of CHF. Patient sees Dr. Bueno for cardiology currently. Patient does take medication for blood pressure. Patient denies any nausea vomiting diarrhea constipation. Denies any URI symptoms. (Ankur Martinez) - Related Data Home Medications Medication Instructions Recorded Confirmed Anastrozole [Arimidex] 1 mg PO MOTUWETHFR 03/08/19 04/24/19 Testosterone Cypionate 200 mg IM Q14D 03/08/19 04/24/19 [Depo-Testosterone] Previous Rx's Medication Instructions Recorded Apixaban [Eliquis] 5 mg PO BID #60 tab 03/10/19 Aspirin 81 mg PO DAILY #30 chew 03/10/19 Atorvastatin [Lipitor] 80 mg PO DAILY #30 tab 03/10/19 Metoprolol Tartrate [Lopressor] 25 mg PO BID #60 tab 03/10/19 Propafenone [Rythmol] 150 mg PO Q8HR #90 tab 03/10/19 Allergies Allergy/AdvReac Type Severity Reaction Status Date / Time hydrocodone [From [place]] AdvReac Confusion Verified 04/24/19 11:29 Review of Systems ROS Other: All systems not noted in ROS Statement are negative. <Ankur Martinez - Last Filed: 04/24/19 13:44> ROS Other: All systems not noted in ROS Statement are negative. <Johan Steve - Last Filed: 04/24/19 14:22> ROS Statement: Those systems with pertinent positive or pertinent negative responses have been documented in the HPI. EKG Findings - EKG Comments: EKG Findings:: EKG performed at 11:35 A. 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 Absent: tenderness, meningismus, lymphadenopathy Respiratory exam: Present: normal lung sounds bilaterally. Absent: respiratory distress, wheezes, rales, rhonchi, stridor Cardiovascular Exam: Present: irregular rhythm, normal heart sounds. Absent: regular rate, normal rhythm, systolic murmur, diastolic murmur, rubs, gallop, clicks GI/Abdominal exam: Present: soft, normal bowel sounds. Absent: distended, tenderness, guarding, rebound, rigid Extremities exam: Absent: pedal edema Back exam: Present: full ROM. Absent: tenderness Neurological exam: Present: alert, oriented X3, CN II-XII intact Psychiatric exam: Present: normal affect, normal mood Skin exam: Present: warm, dry, intact, normal color. Absent: rash <Ankur Martinez - Last Filed: 04/24/19 13:44> Course <Johan Steve - Last Filed: 04/24/19 14:22> Vital Signs 04/24/19 04/24/19 04/24/19 11:22 12:00 12:30 Temperature 97.9 F Pulse Rate 92 99 104 H Respiratory 16 16 Rate Blood Pressure 122/92 129/93 120/91 O2 Sat by Pulse 95 96 96 Oximetry 04/24/19 04/24/19 13:00 13:30 Temperature Pulse Rate 98 99 Respiratory Rate Blood Pressure 100/78 109/84 O2 Sat by Pulse 95 96 Oximetry - Reevaluation(s) Reevaluation #1: 04/24/19 14:22 I did evaluate this case and did discuss the findings with the patient review the old charting was available I did discuss case Dr. Mcallister she will be admitted for cardiology evaluation. (Johan Steve) Chest Pain MDM <Ankur Martinez - Last Filed: 04/24/19 13:44> - MDM 48-year-old male presented for chest pain. He has had a recent heart cath though he's had persistent chest pain worsening. Patient will be admitted for A. fib, chest pain. (Ankur Martinez) Disposition <Ankur Martinez - Last Filed: 04/24/19 13:44> <Johan Steve - Last Filed: 04/24/19 14:22> Clinical Impression: A-fib, Chest pain Disposition: ADMITTED IP TO THIS [facility] Condition: Fair Referrals: Galen Shook MD [Primary Care Provider] - 1-2 days
[2019-04-24 12:23] LABS: ALT 51 U/L (21-72); AST 33 U/L (17-59); Albumin 4.4 g/dL (3.5-5.0); Alkaline Phosphatase 87 U/L (38-126); Anion Gap 10 mmol/L; Blood Urea Nitrogen 21 mg/dL (9-20); Calcium 9.4 mg/dL (8.4-10.2); Carbon Dioxide 25 mmol/L (22-30); Chloride 108 mmol/L (98-107); Glucose 90 mg/dL (74-99); Magnesium 2.1 mg/dL (1.6-2.3); Potassium 4.6 mmol/L (3.5-5.1); Sodium 143 mmol/L (137-145); Total Bilirubin 1.2 mg/dL (0.2-1.3); Total Protein 7.3 g/dL (6.3-8.2)
--- NOTE | 2019-04-24 12:24 | XR ---
EXAMINATION TYPE: XR chest 2V DATE OF EXAM: 04/24/2019 COMPARISON: Prior chest x-ray 03/08/2019 HISTORY: Chest pain TECHNIQUE: Frontal and lateral views of the chest are obtained. FINDINGS: There is no focal air space opacity, pleural effusion, or pneumothorax seen. The cardiac silhouette size is stable, lung volumes are low. The osseous structures are intact. There are overl cayla cardiac leads, patient is rotated. IMPRESSION: No acute cardiopulmonary process. Rotated exam, expiratory. Follow-up as indicated.
[2019-04-24 12:43] LABS: Basophils # (A) 0.1 k/uL (0-0.2); Basophils % (A) 0 %; Eosinophils # (A) 0.2 k/uL (0-0.7); Eosinophils % (A) 1 %; HCT 54.5 % (39.0-53.0); HGB 18.1 gm/dL (13.0-17.5); Lymphocytes # (A) 2.1 k/uL (1.0-4.8); Lymphocytes % (A) 18 %; MCH 29.3 pg (25.0-35.0); MCHC 33.2 g/dL (31.0-37.0); MCV 88.2 fL (80.0-100.0); Mean Platelet Volume 9.3; Monocytes % (A) 9 %; Neutrophils # (A) 8.1 k/uL (1.3-7.7); Neutrophils % (A) 70 %; Platelet Count 148 k/uL (150-450); RBC 6.18 m/uL (4.30-5.90); RDW 15.1 % (11.5-15.5); WBC 11.7 k/uL (3.8-10.6)
[2019-04-24 13:01] LABS: D-Dimer 0.36 mg/L FEU (<0.60); INR 1.1 (<1.2); Partial Thromboplastin Time 26.3 sec (22.0-30.0); Prothrombin Time 11.6 sec (9.0-12.0)
[2019-04-24] MEDS ORDERED: MORPHINE SULFATE 2 MG/ML SYRINGE IVP STA (13:44)
[2019-04-24] MEDS ORDERED: ONDANSETRON 4 MG/2 ML VIAL IVP STA (13:44)
[2019-04-24] MEDS ORDERED: NITROGLYCERIN SL TABS 0.4 MG TAB SUBLINGUAL PRN (14:38)
[2019-04-24 15:34] VITALS: BMI 38.0
[2019-04-24] MEDS ORDERED: METOPROLOL TARTRATE 25 MG TAB PO STA (15:50)
[2019-04-24] MEDS: PROPAFENONE 150 MG TAB PO SCH ×2 (16:02→23:25)
[2019-04-24] MEDS: ANASTROZOLE 1 MG TAB PO SCH (16:02)
[2019-04-24] MEDS: HYDROmorphone 1 MG/ML 1 ML SYRINGE IVP PRN ×2 (16:03→21:37)
[2019-04-24 19:29] VITALS: RESP 18
[2019-04-24] MEDS ORDERED: ACETAMINOPHEN TAB 325 MG TAB PO STA (20:06)
[2019-04-24] MEDS: APIXABAN 5 MG TAB PO SCH (20:20)
[2019-04-24] MEDS ORDERED: METOPROLOL TARTRATE 25 MG TAB PO SCH (21:00)
[2019-04-25 03:31] LABS: Cholesterol 132 mg/dL (<200); HDL Cholesterol 44 mg/dL (40-60); LDL Cholesterol,Calculated 69 mg/dL (0-99); Triglycerides 94 mg/dL (<150)
[2019-04-25] MEDS: HYDROmorphone 1 MG/ML 1 ML SYRINGE IVP PRN (06:14)
[2019-04-25] MEDS ORDERED: METOPROLOL TARTRATE 50 MG TAB PO SCH (09:00)
[2019-04-25] MEDS ORDERED: ASPIRIN 325 MG TAB PO SCH (09:00)
[2019-04-25] MEDS ORDERED: ATORVASTATIN 80 MG TAB PO SCH (09:00)
--- NOTE | 2019-04-25 09:01 | P.CRDCN ---
History of Present Illness Consult date: 04/25/19 Chief complaint: Chest pain History of present illness: This is a pleasant 49-year-old gentleman with a past medical history significant for paroxysmal atrial fibrillation presented to the hospital complaining of chest discomfort as well as heart racing. He was in his usual state of health where he was driving yesterday when he suddenly started experiencing heart racing and subsequently started having chest discomfort. No dizziness or ligh theadedness, and no syncope. In the emergency room the EKG showed atrial fibrillation with diffuse nonspecific ST and T wave abnormalities and heart rate of 96 beats per minutes. The patient does have history of paroxysmal atrial fibrillation and he is on oral anticoagulation. He is also on metoprolol. The cardiac enzymes were checked and came in to be unremarkable. 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 At that point the patient was treated medically. Currently he is chest pain-free. Past Medical History Past Medical History: Atrial Fibrillation, Hyperlipidemia Additional Past Medical History / Comment(s): ERECTILE DYSFUNCTION History of Any Multi-Drug Resistant Organisms: None Reported Past Surgical History: Orthopedic Surgery Additional Past Surgical History / Comment(s): sylvester knee Additional Past Anesthesia/Blood Transfusion Reaction / Comment(s): stated comes out of anesthesia really hard Past Psychological History: No Psychological Hx Reported Smoking Status: Never smoker Past Alcohol Use History: Rare Past Drug Use History: None Reported - Past Family History Mother Family Medical History: Hypertension Father Family Medical History: AFIB, AICD/Pacemaker, Diabetes Mellitus Additional Family Medical History / Comment(s): sleep apnea- uses CPAP Medications and Allergies Home Medications Medication Instructions Recorded Confirmed Type Anastrozole [Arimidex] 1 mg PO MOTUWETHFR 03/08/19 04/24/19 History Testosterone Cypionate 200 mg IM Q14D 03/08/19 04/24/19 History [Depo-Testosterone] Apixaban [Eliquis] 5 mg PO BID #60 tab 03/10/19 04/24/19 Rx Aspirin 81 mg PO DAILY #30 chew 03/10/19 04/24/19 Rx Atorvastatin [Lipitor] 80 mg PO DAILY #30 tab 03/10/19 04/24/19 Rx Metoprolol Tartrate [Lopressor] 25 mg PO BID #60 tab 03/10/19 04/24/19 Rx Propafenone [Rythmol] 150 mg PO Q8HR #90 tab 03/10/19 04/24/19 Rx Allergies Allergy/AdvReac Type Severity Reaction Status Date / Time hydrocodone [From [place]] AdvReac Confusion Verified 04/24/19 11:29 Physical Exam Vitals: Vital Signs Temp Pulse Pulse Resp BP BP BP 04/25/19 07:20 97.5 F L 56 L 18 142/83 04/25/19 06:13 92/63 04/25/19 03:50 18 04/25/19 03:49 99.3 F 93 18 90/60 04/25/19 00:00 18 04/24/19 23:32 99.3 F 97 18 111/74 04/24/19 20:00 18 04/24/19 19:28 99.4 F 106 H 18 120/82 04/24/19 15:50 97.4 F L 108 H 7 L 115/82 04/24/19 15:00 110 H 18 99/80 04/24/19 14:30 100/75 04/24/19 14:00 98 107/80 04/24/19 13:30 99 109/84 04/24/19 13:00 98 100/78 04/24/19 12:30 104 H 120/91 04/24/19 12:00 99 16 129/93 04/24/19 11:22 97.9 F 92 16 122/92 Pulse Ox 04/25/19 07:20 96 04/25/19 06:13 04/25/19 03:50 04/25/19 03:49 95 04/25/19 00:00 04/24/19 23:32 91 L 04/24/19 20:00 04/24/19 19:28 97 04/24/19 15:50 100 04/24/19 15:00 99 04/24/19 14:30 94 L 04/24/19 14:00 97 04/24/19 13:30 96 04/24/19 13:00 95 04/24/19 12:30 96 04/24/19 12:00 96 04/24/19 11:22 95 Intake and Output 04/24/19 04/25/19 04/25/19 22:59 06:59 14:59 Other: Voiding Method Toilet Toilet # Voids 1 2 - Constitutional General appearance: no acute distress - Respiratory Respiratory: bilateral: CTA - Cardiovascular Heart sounds: normal: S1, S2 Results 04/24/19 12:00 04/24/19 12:00 Cardiac Enzymes 04/24/19 04/24/19 04/24/19 Range/Units 12:00 12:00 17:41 AST 33 (17-59) U/L Troponin I <0.012 <0.012 (0.000-0.034) ng/mL 04/25/19 Range/Units 00:18 AST (17-59) U/L Troponin I <0.012 (0.000-0.034) ng/mL Coagulation 04/24/19 Range/Units 12:00 PT 11.6 (9.0-12.0) sec APTT 26.3 (22.0-30.0) sec Lipids 04/24/19 Range/Units 12:00 Triglycerides 94 (<150) mg/dL Cholesterol 132 (<200) mg/dL HDL Cholesterol 44 (40-60) mg/dL CBC 04/24/19 Range/Units 12:00 WBC 11.7 H (3.8-10.6) k/uL RBC 6.18 H (4.30-5.90) m/uL Hgb 18.1 H (13.0-17.5) gm/dL Hct 54.5 H (39.0-53.0) % Plt Count 148 L (150-450) k/uL Comprehensive Metabolic Panel 04/24/19 Range/Units 12:00 Sodium 143 (137-145) mmol/L Potassium 4.6 (3.5-5.1) mmol/L Chloride 108 H (98-107) mmol/L Carbon Dioxide 25 (22-30) mmol/L BUN 21 H (9-20) mg/dL Creatinine 1.09 (0.66-1.25) mg/dL Glucose 90 (74-99) mg/dL Calcium 9.4 (8.4-10.2) mg/dL AST 33 (17-59) U/L ALT 51 (21-72) U/L Alkaline Phosphatase 87 (38-126) U/L Total Protein 7.3 (6.3-8.2) g/dL Albumin 4.4 (3.5-5.0) g/dL Current Medications Generic Name Dose Route Start Last Admin Trade Name Freq PRN Reason Stop Dose Admin Anastrozole 1 mg 04/24/19 15:45 04/24/19 16:02 Arimidex PO Not Given [id number] RAMBO Apixaban 5 mg 04/24/19 21:00 04/24/19 20:20 Eliquis PO 5 mg BID RAMBO Administration Aspirin 325 mg 04/25/19 09:00 Aspirin PO DAILY RAMBO Atorvastatin Calcium 80 mg 04/25/19 09:00 Lipitor PO DAILY [facility] Hydromorphone HCl 1 mg 04/24/19 15:50 04/25/19 06:14 Dilaudid IVP 1 mg Q4HR PRN Administration Pain Metoprolol Tartrate 50 mg 04/25/19 09:00 Lopressor PO BID [facility] Nitroglycerin 0.4 mg 04/24/19 14:38 Nitrostat SUBLINGUAL Q5M PRN Chest Pain Propafenone HCl 150 mg 04/24/19 16:00 04/24/19 23:25 Rythmol PO 150 mg Q8HR RAMBO Administration Intake and Output 04/24/19 04/25/19 04/25/19 22:59 06:59 14:59 Other: Voiding Method Toilet Toilet # Voids 1 2 04/24/19 12:00 04/24/19 12:00 Assessment and Plan Assessment: Assessment #1 atrial fibrillation with RVR. The patient is known to have paroxysmal atrial fibrillation. #2 chest discomfort likely related to the atrial fibrillation Plan #1 acute coronary event was ruled out #2 recent heart catheterization showed no evidence of significant coronary artery disease #3 I would increase the dose of metoprolol #4 the patient can be discharged home. Thank you for allowing us participate in his care.
[2019-04-25] MEDS: PROPAFENONE 150 MG TAB PO SCH (09:08)
[2019-04-25] MEDS: APIXABAN 5 MG TAB PO SCH (09:08)
[2019-04-25 11:54] VITALS: BP 117/84; PULSE 66; TEMP 98.3
[2019-04-25] MEDS: ANASTROZOLE 1 MG TAB PO SCH (12:13)
--- NOTE | 2019-04-25 19:08 | HP ---
HISTORY AND PHYSICAL This is both a history and physical and discharge summary on this patient. This dictation could not be done earlier, as the entire computer system was down for several hours today. DATE OF ADMISSION: 04/24/2019 DATE OF DISCHARGE: 04/25/2019 DATE OF SERVICE: 04/25/2019 PRESENTING COMPLAINT: Chest pain. HISTORY OF PRESENTING COMPLAINT: This is a 49-year-old patient who was here in February of this year with paroxysmal atrial fibrillation. The patient did have a cardiac catheterization that showed a possible plaque rupture at that time. The patient's chronic stable medical conditions include hyperlipidemia, hypotestosteronism, obesity. Patient presented with a dull ache in the left precordial area that happened about 5 days ago. The patient did feel very slightly short of breath, a bit lightheaded, some perspiration, very mild cough, though dry. No fever. No chills. He presented to the ER. Troponins were negative. He was admitted for workup for a cardiac cause. REVIEW OF SYSTEMS: CONSTITUTIONAL: Tired. HEENT: None. RESPIRATORY: As above. CARDIOVASCULAR: As above. GASTROINTESTINAL: None. GENITOURINARY: None. MUSCULOSKELETAL: None. DERMATOLOGIC: None. HEMATOLOGIC: None. LYMPHATIC: None. PSYCHIATRY: None. NEUROLOGICAL: None. PAST MEDICAL HISTORY: 1. Paroxysmal atrial fibrillation. 2. Hyperlipidemia. 3. Hypotestosteronism. 4. Obesity. PAST SURGICAL HISTORY: Bilateral knee intervention. SOCIAL HISTORY: No smoking. Alcohol rarely. . 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 FAMILY HISTORY: Hypertension. HOME MEDICATIONS: 1. Depo-Testosterone 200 mg every 14 days. 2. Eliquis 5 mg b.i.d. 3. Aspirin 81 mg a day. 4. Lipitor 80 mg daily. 5. Lopressor 25 b.i.d. 6. Rythmol 150 mg q.8. ALLERGIES: HYDROCODONE. PHYSICAL EXAMINATION: VITAL SIGNS ON PRESENTATION: Temperature 97.9, pulse up to 110, respiration 18, blood pressure 100/75, pulse ox 94% on room air. GENERAL APPEARANCE: Well built; BMI 38. Sitting up, awake. EYES: Pupils equal. Conjunctivae normal. HEENT: External appearance of nose and ears normal. Oral cavity normal. NECK: JVD not raised. Mass not palpable. RESPIRATORY: Effort normal. LUNGS: Fair air entry. CARDIOVASCULAR: First and second sounds normal. No edema. ABDOMEN: Soft, non-tender. Liver and spleen not palpable. LYMPHATIC: No lymph node palpable in neck or axillae. PSYCHIATRY: Alert and oriented x3. Mood and affect normal. NEUROLOGICAL: Pupils equal. Cranial nerves grossly intact. Power and sensation grossly intact. INVESTIGATIONS: White count 11.7, hemoglobin 18.1, potassium 4.6. BUN 21, creatinine 1.09. Troponin x3 negative. EKG tracing, personally reviewed by me, shows atrial flutter/fibrillation, rate close to about 100. Chest x-ray film, personally reviewed by me, shows borderline cardiomegaly; lung nina otherwise clear. ASSESSMENT: 1. Persistent atrial fibrillation with rapid ventricular rate likely causing patient's symptoms. 2. Hyperlipidemia. 3. Hypotestosteronism. 4. Obesity; body mass index 39.2. 5. Recent cardiac catheterization showing plaque rupture. PLAN: Cardiology was consulted. Patient was seen by Dr. Flores, who did increase the patient's beta jason. Care was discussed with the patient. Questions were answered. The patient will be discharged home. DISCHARGE MEDICATIONS: Discharge medications include: 1. Rythmol 150 mg q.8. 2. Eliquis 5 mg b.i.d. 3. Lopressor 50 mg b.i.d. The patient was made to ambulate. Follow up with Dr. Flores in one week. Follow up with Dr. Galen Shook in one week. This is both a history and physical and a discharge summary on this patient. MMODL / IJN: [id number] /
--- NOTE | 2019-04-26 07:33 | DS ---
DISCHARGE SUMMARY DATE OF ADMISSION: 04/24/2019 DATE OF DISCHARGE: 04/25/2019 Please refer to my H and P which is both H and P and a discharge summary on this patient. MMODL / IJN: [id number] /
== END 2019-04-25 13:10 | disposition home or self-care (01) ==
LOC: EC 11:14 → 1SOBS 14:21
PROVIDERS: ADMIT Hospitalist; ATTEND Hospitalist
DX: I48.0 Paroxysmal atrial fibrillation (principal); R07.89 Other chest pain; E66.9 Obesity, unspecified; E78.5 Hyperlipidemia, unspecified; N52.9 Male erectile dysfunction, unspecified; G47.30 Sleep apnea, unspecified; Z99.89 Dependence on other enabling machines and devices; Z68.39 Body mass index [BMI] 39.0-39.9, adult; Z79.01 Long term (current) use of anticoagulants; Z79.82 Long term (current) use of aspirin; Z79.899 Other long term (current) drug therapy; Z88.5 Allergy status to narcotic agent; Z82.49 Family history of ischemic heart disease and other diseases of the circulatory system; Z83.3 Family history of diabetes mellitus
CPT/HCPCS: 96375 ×2; 96376 ×2; 96374; 99285; 36415; 93005; 85379; 83880; 80061; 80053; 83735; 84484 ×2; 85025; 85610; 85730; 71046; G0378 ×2; J2405; S0170; J2270; J1170 ×2

== ENCOUNTER 2019-04-26 04:24 | Inpatient (IN) | payer BC ==
--- NOTE | 2019-04-26 05:00 | ED ---
Chest Pain HPI - General Chief Complaint: Chest Pain Stated Complaint: Chest Pain Time Seen by Provider: 04/26/19 04:47 Source: patient, family Mode of arrival: wheelchair Limitations: no limitations - History of Present Illness Initial Comments: This patient is a 49-year-old man who presents to be evaluated for left-sided chest pain. Patient states that it came on approximately 3 hours ago while he was sleeping and it did wake him. Patient states that he is having episodes of the pain. They seem to last about 10 seconds, and then there will be 10-20 minutes between each episode. Patient denies any associated symptoms. He had been discharged from the hospital 2 days ago after being admitted for chest pains that were similar to these. Patient states in addition that he has had a heart catheterization was performed in February here MD Complaint: chest pain -: hour(s) Onset: awoke with symptoms Pain Location: left chest Pain Radiation: LUE Severity: moderate Quality: aching Consistency: intermittent Improves With: nothing Worsens With: nothing Treatments Prior to Arrival: none - Related Data Home Medications Medication Instructions Recorded Confirmed Anastrozole [Arimidex] 1 mg PO MOTUWETHFR 03/08/19 04/26/19 Testosterone Cypionate 200 mg IM Q14D 03/08/19 04/26/19 [Depo-Testosterone] Previous Rx's Medication Instructions Recorded Apixaban [Eliquis] 5 mg PO BID #60 tab 03/10/19 Aspirin 81 mg PO DAILY #30 chew 03/10/19 Atorvastatin [Lipitor] 80 mg PO DAILY #30 tab 03/10/19 Propafenone [Rythmol] 150 mg PO Q8HR #90 tab 03/10/19 Metoprolol Tartrate [Lopressor] 50 mg PO BID #60 tab 04/25/19 Allergies Allergy/AdvReac Type Severity Reaction Status Date / Time hydrocodone [From [place]] AdvReac Confusion Verified 04/26/19 07:11 Review of Systems ROS Statement: Those systems with pertinent positive or pertinent negative responses have been documented in the HPI. ROS Other: All systems not noted in ROS Statement are negative. Constitutional: Denies: fever, chills, weakness Respiratory: Denies: cough, dyspnea Cardiovascular: Reports: chest pain. Denies: palpitations, orthopnea, edema, syncope Gastrointestinal: Denies: abdominal pain, nausea Genitourinary: Denies: as per HPI, dysuria, hematuria Musculoskeletal: Denies: back pain Skin: Denies: rash Neurological: Denies: headache, weakness, numbness EKG Findings - EKG Results: EKG: interpreted by BRETT, sinus rhythm (Rate approximately 83 bpm), normal axis, normal QRS Past Medical History Past Medical History: Atrial Fibrillation, Hyperlipidemia Additional Past Medical History / Comment(s): ERECTILE DYSFUNCTION History of Any Multi-Drug Resistant Organisms: None Reported Past Surgical History: Heart Catheterization, Hernia Repair, Orthopedic Surgery Additional Past Surgical History / Comment(s): sylvester knee Additional Past Anesthesia/Blood Transfusion Reaction / Comment(s): stated comes out of anesthesia really hard Past Psychological History: No Psychological Hx Reported Smoking Status: Never smoker Past Alcohol Use History: Rare Past Drug Use History: None Reported - Past Family History Mother Family Medical History: Hypertension Father Family Medical History: AFIB, AICD/Pacemaker, Diabetes Mellitus Additional Family Medical History / Comment(s): sleep apnea- uses CPAP General Exam Limitations: no limitations General appearance: alert, in no apparent distress Head exam: Present: atraumatic, normocephalic Eye exam: Present: normal appearance. Absent: scleral icterus, conjunctival injection ENT exam: Present: normal oropharynx Respiratory exam: Present: normal lung sounds bilaterally. Absent: respiratory distress, wheezes, rales, rhonchi, stridor Cardiovascular Exam: Present: regular rate, normal rhythm, normal heart sounds. Absent: systolic murmur, diastolic murmur, rubs, gallop GI/Abdominal exam: Present: soft. Absent: distended, tenderness, guarding, rebound, rigid, mass Extremities exam: Present: normal inspection, normal capillary refill. Absent: pedal edema, calf tenderness Back exam: Present: normal inspection Neurological exam: Present: alert Skin exam: Present: warm, dry, intact, normal color. Absent: rash Course Vital Signs 04/26/19 04/26/19 04/26/19 04:26 04:35 04:40 Temperature 99.7 F H Pulse Rate 92 87 88 Respiratory 20 37 H 21 Rate Blood Pressure 117/83 129/87 O2 Sat by Pulse 98 95 Oximetry 04/26/19 04/26/19 04/26/19 04:50 05:00 05:10 Temperature Pulse Rate 92 88 Respiratory 32 H 29 H Rate Blood Pressure 129/87 129/87 117/69 O2 Sat by Pulse 99 83 L Oximetry 04/26/19 04/26/19 04/26/19 05:20 05:30 05:40 Temperature Pulse Rate 84 84 82 Respiratory 38 H 32 H 22 Rate Blood Pressure 117/69 117/69 114/89 O2 Sat by Pulse 97 98 96 Oximetry 04/26/19 04/26/19 04/26/19 05:50 06:00 06:10 Temperature Pulse Rate 87 95 89 Respiratory 27 H 13 25 H Rate Blood Pressure 114/89 114/89 102/83 O2 Sat by Pulse 97 95 96 Oximetry 04/26/19 04/26/19 04/26/19 06:20 06:30 06:40 Temperature Pulse Rate 87 92 Respiratory 27 H 6 L Rate Blood Pressure 102/83 102/83 104/76 O2 Sat by Pulse 94 L 96 Oximetry 04/26/19 04/26/19 04/26/19 06:50 07:10 08:00 Temperature Pulse Rate 87 83 Respiratory 18 20 Rate Blood Pressure 104/76 108/73 103/80 O2 Sat by Pulse 97 94 L Oximetry 04/26/19 04/26/19 08:11 09:00 Temperature 98.8 F Pulse Rate 87 Respiratory 16 Rate Blood Pressure 108/78 O2 Sat by Pulse 94 L Oximetry Chest Pain [facility] Patient's 49-year-old man with history of atrial fibrillation who has been here tonight for atypical chest pains. Tonight was concerning that the patient was somewhat tachypnea. Therefore as part of workup d-dimer is ordered. This is elevated and when the patient is sent for computed tomography scan a new pericardial effusion is noted versus his echo cardiogram from March 10. I discussed the finding with Dr. Sanchez who did request that we let Chloe Del Angel know so that she could see the patient and also that we order an echocardiogram. I did discuss case with Dr. Del Angel, any patient is currently receiving the study. The patient signed out to the following physician pending the result of the workup. Additional history from the patient revealed that he did have influenza earlier in the month of March. Disposition Clinical Impression: Pericardial effusion, Tachypnea Referrals: Galen Shook MD [Primary Care Provider] - 1-2 days
[2019-04-26 05:15] LABS: Basophils % (A) 0 %; Eosinophils # (A) 0.2 k/uL (0-0.7); Eosinophils % (A) 2 %; HCT 50.2 % (39.0-53.0); HGB 16.7 gm/dL (13.0-17.5); Lymphocytes # (A) 1.3 k/uL (1.0-4.8); Lymphocytes % (A) 10 %; MCH 29.1 pg (25.0-35.0); MCHC 33.2 g/dL (31.0-37.0); MCV 87.6 fL (80.0-100.0); Mean Platelet Volume 8.9; Monocytes # (A) 0.8 k/uL (0-1.0); Monocytes % (A) 7 %; Neutrophils # (A) 9.7 k/uL (1.3-7.7); Neutrophils % (A) 80 %; Platelet Count 167 k/uL (150-450); RBC 5.73 m/uL (4.30-5.90); RDW 14.1 % (11.5-15.5); WBC 12.2 k/uL (3.8-10.6)
[2019-04-26] MEDS ORDERED: ONDANSETRON 4 MG/2 ML VIAL IVP STA (05:21)
[2019-04-26 05:25] LABS: Albumin 4.3 g/dL (3.5-5.0); Calcium 9.3 mg/dL (8.4-10.2); Magnesium 1.9 mg/dL (1.6-2.3); Potassium 4.8 mmol/L (3.5-5.1); Total Bilirubin 1.4 mg/dL (0.2-1.3); Total Protein 7.2 g/dL (6.3-8.2)
--- NOTE | 2019-04-26 05:28 | XR ---
EXAM: XR Chest, 2 Views CLINICAL HISTORY: ITS.REASON XR Reason: Chest Pain TECHNIQUE: Frontal and lateral views of the chest. COMPARISON: No relevant prior studies available. FINDINGS: Lungs: Unremarkable. No consolidation. Pleural space: Unremarkable. No pneumothorax. Heart: No suspicious enlargement. Mediastinum: Unremarkable. Bones/joints: No acute fracture. IMPRESSION: No acute findings.
[2019-04-26 05:31] LABS: INR 1.1 (<1.2); Partial Thromboplastin Time 25.6 sec (22.0-30.0); Prothrombin Time 11.4 sec (9.0-12.0)
[2019-04-26 05:41] LABS: D-Dimer 2.19 mg/L FEU (<0.60)
--- NOTE | 2019-04-26 07:28 | CT ---
EXAM: CT Angiography Chest With Intravenous Contrast CLINICAL HISTORY: ITS.REASON CT Reason: Pain TECHNIQUE: Axial computed tomographic angiography images of the chest with intravenous contrast using pulmonary embolism protocol. DLP is 592.1 mGy- cm. This CT exam was performed using one or more of the following dose reduction techniques: automated exposure control, adjustment of the mA and/or kV according to patient size, and/or use of iterative reconstruction technique. MIP reconstructed images were created and reviewed. COMPARISON: No relevant prior studies available. FINDINGS: Pulmonary arteries: No evidence for pulmonary embolism. Aorta: No acute findings. No thoracic aortic aneurysm. Lungs: Subsegmental linear changes at the lung bases are presumed subsegmental atelectasis. No focal consolidation. There is a 4 mm calcified granuloma involving the right middle lobe. Pleural space: Trace layering pleural effusions are noted bilaterally measuring up to 11 mm posteriorly on the left. No pneumothorax. Heart: A pericardial effusion is noted measuring up to 11 mm posteriorly. Bones/joints: No acute fracture. No dislocation. Soft tissues: Unremarkable. Lymph nodes: Unremarkable. No enlarged lymph nodes. IMPRESSION: 1. No evidence for pulmonary embolism. 2. Subsegmental linear changes at the lung bases are presumed subsegmental atelectasis. No focal consolidation. Trace pleural effusions layering posteriorly. 3. A pericardial effusion is noted measuring up to 11 mm in thickness posteriorly.
[2019-04-26] MEDS ORDERED: NALOXONE 0.4 MG/ML 1 ML VIAL IV PRN (09:39)
[2019-04-26 11:00] VITALS: BMI 37.7
[2019-04-26] MEDS ORDERED: ASPIRIN 81 MG PO SCH (12:00)
[2019-04-26] MEDS: ATORVASTATIN 80 MG TAB PO SCH (12:49)
[2019-04-26] MEDS: METOPROLOL TARTRATE 50 MG TAB PO SCH ×2 (12:50→19:58)
[2019-04-26] MEDS: APIXABAN 5 MG TAB PO SCH ×2 (12:50→19:58)
[2019-04-26] MEDS: ANASTROZOLE 1 MG TAB PO SCH (12:50)
[2019-04-26] MEDS: PROPAFENONE 150 MG TAB PO SCH ×2 (12:51→23:12)
--- NOTE | 2019-04-26 14:12 | CONS ---
CONSULTATION This patient's old chart is reviewed. This patient came in yesterday with atypical chest pain. The patient was in atrial fibrillation with controlled rate. The cardiac enzymes were negative and patient was discharged home. According to him, he woke up again with the pain on the left, precordial chest pain. The pain is sharp, increases with breathing and coughing. The patient gives a history that he had a flu couple of weeks ago and was treated. He had a cardiac catheterization done about a month ago. At that time, only mild coronary artery disease was detected. Patient denies any definite exertional chest pain. Patient has a history of paroxysmal atrial fibrillation . HOME MEDICATIONS: Include testosterone, Arimidex, Eliquis 5 mg b.i.d., baby aspirin once a day, Lipitor 80 mg daily today. Patient is on Rythmol 150 mg q.8 hourly and metoprolol 50 mg b.i.d. REVIEW OF THE SYSTEM: Otherwise unremarkable. PAST MEDICAL HISTORY: Includes a history of atrial fibrillation, hyperlipidemia, erectile dysfunction. PHYSICAL EXAMINATION: At present reveals a 49-year-old gentleman who is obesely built, does not appear to be in any acute distress. The patient's initial respiratory rate was 30 to 32, blood pressure is 129/87 mmHg, oxygen saturation is 99%. HEENT: Examinations were negative. NECK: Supple. There is no increase in jugular venous pressure. Both the carotid pulses are felt. There is no bruit. CHEST: Symmetrical. HEART: The PMI is not felt. First and second heart sounds are normal. No rub is heard. LUNGS: Fairly clear to auscultation and percussion. ABDOMEN: Soft. Liver and spleen are not enlarged. EXTREMITIES: Peripheral pulsations are 2+. EKG shows a normal sinus rhythm with T-wave inversions, more prominent T-wave inversions noted in 3 and AVF as compared to yesterday. Whether this changes are due to the post-conversion is a possibility, patient's troponin is negative. Patient had a CT scan of the chest done which did not show any evidence of pulmonary embolism. However, there is a small pericardial effusion was noted. Echocardiogram done was repeated which showed normal left ventricular systolic function and small pericardial effusion is noted. There are no definite changes on the EKG of the ER segment depression all for this patient has a minimal J-point elevation in V2 and V3. No significant [place] segment depression is minimal. PE are segment depression is noted. FINAL IMPRESSION: This history may be suggestive of possible pericarditis. We will order a Sed Rate and C-reactive protein. We will treat the patient with Motrin and colchicine. If there is no improvement in the symptoms, patient may need repeat catheterization . RYAN / JOSE LUISN: [id number] /
[2019-04-26] MEDS: IBUPROFEN 600 MG TAB PO SCH ×2 (15:19→23:12)
[2019-04-26] MEDS: COLCHICINE 0.6 MG EACH PO SCH ×2 (15:20→20:45)
--- NOTE | 2019-04-26 16:18 | ECHOF ---
Referral Reason:effusion MEASUREMENTS -------- HEIGHT: 172.7 cm WEIGHT: 112.5 kg BP: FINDINGS -------- Sinus rhythm. Limited Study Overall left ventricular systolic function is normal with, an EF between 55 - 60 %. There is a trivial pericardial effusion present. CONCLUSIONS -------- 1. Sinus rhythm. 2. Limited Study 3. Overall left ventricular systolic function is normal with, an EF between 55 - 60 %. 4. There is a trivial pericardial effusion present. SITE PROJECT MANAGER: Kaur Diaz [facility]
[2019-04-26] MEDS: ZOLPIDEM 5 MG TAB PO SCH (20:45)
--- NOTE | 2019-04-26 21:13 | HP ---
HISTORY AND PHYSICAL DATE OF ADMISSION: 04/26/2019 DATE OF SERVICE: 04/26/2019 PRESENTING COMPLAINT: Chest pain. HISTORY OF PRESENTING COMPLAINT: This is a very pleasant 49-year-old patient who in February of this year was diagnosed with atrial fibrillation. Patient also had a cardiac catheterization that showed plaque rupture. Chronic stable medical conditions include hyperlipidemia, hypotestosteronism, obesity. Patient was just discharged from the hospital yesterday. Patient had initially presented with 5 days of dull ache in the left precordial area that happened about 5 days ago. Patient had been mildly short of breath, a bit lightheaded with some bouts of perspiration, mild cough. Troponins were negative. Patient was seen by Dr. Flores and beta jason was added. Patient is admitted again with left precordial pain, rather sharp; felt better with sitting up; low-grade fever; some pleuritic nature to the same. Patient was admitted to the ER. EKG showed some changes. REVIEW OF SYSTEMS: CONSTITUTIONAL: Low-grade fever. HEENT: None. RESPIRATORY: As above. CARDIOVASCULAR: As above. GASTROINTESTINAL: None. GENITOURINARY: None. MUSCULOSKELETAL: None. DERMATOLOGICAL: None. HEMATOLOGICAL: None. LYMPHATICS: None. PSYCHIATRY: None. NEUROLOGICAL: None. PAST MEDICAL HISTORY: 1. Atrial fibrillation. 2. Hyperlipidemia. 3. Hypotestosteronism. 4. Obesity. PAST SURGICAL HISTORY: Bilateral knee intervention. SOCIAL HISTORY: No smoking. Alcohol rarely. . 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 FAMILY HISTORY: Hypertension. HOME MEDICATIONS: 1. Rythmol 150 mg q.8. 2. Lopressor 50 mg b.i.d. 3. Lipitor 80 mg p.o. daily. 4. Aspirin 81 mg p.o. daily. 5. Eliquis 5 mg b.i.d. 6. Arimidex 1 mg Wednesday, Wednesday, Wednesday, , Wednesday. 7. Depo-Testosterone 200 mg IM every 14 days. ALLERGIES: NORCO. PHYSICAL EXAMINATION: Temperature 100.5, pulse 79, respiration 18, blood pressure 110/74, pulse ox 92% on room air. GENERAL APPEARANCE: Well built; BMI 37.7. Lying in bed, tired-appearing. EYES: Pupils equal. Conjunctivae normal. HEENT: External appearance of nose and ears normal. Oral cavity normal. NECK: JVD not raised. Mass not palpable. RESPIRATORY: Effort normal. LUNGS: Fair air entry. CARDIOVASCULAR: First and second sounds normal. No edema. ABDOMEN: Soft, non-tender. Liver and spleen not palpable. LYMPHATIC: No lymph node palpable in neck or axillae. PSYCHIATRY: Alert and oriented x3. Mood and affect normal. NEUROLOGICAL: Pupils equal. Cranial nerves grossly intact. Power and sensation grossly intact. INVESTIGATIONS: White count 12.2, increased neutrophils. Potassium 4.8, BUN 23, creatinine 1.14. C- reactive protein 218.6. ESR 28. EKG tracing, personally reviewed by me, shows flipped T-waves in inferior leads. Chest CTA shows some atelectatic changes, a posterior 11 mm thick pericardial effusion. Two- D echocardiogram with limited view shows a trivial pericardial effusion. ASSESSMENT: 1. Acute viral pericarditis based on clinical signs and symptoms and other findings. 2. Paroxysmal atrial fibrillation. 3. Obesity. 4. Hyperlipidemia. 5. Hypotestosteronism. PLAN: The patient will be treated with NSAIDs and colchicine. Other home medications are resumed. Care was discussed with the patient. Cardiology was consulted. I expect patient's symptoms to improve in 24 hours. Patient will need to take colchicine for close to 6 weeks and probably NSAIDs for about 2 weeks. MMODL / IJN: [id number] /
[2019-04-27 06:39] LABS: Basophils # (A) 0.1 k/uL (0-0.2); Basophils % (A) 1 %; Eosinophils # (A) 0.2 k/uL (0-0.7); Eosinophils % (A) 2 %; HCT 46.8 % (39.0-53.0); HGB 15.4 gm/dL (13.0-17.5); Lymphocytes # (A) 1.4 k/uL (1.0-4.8); Lymphocytes % (A) 16 %; MCH 29.1 pg (25.0-35.0); MCHC 32.9 g/dL (31.0-37.0); MCV 88.4 fL (80.0-100.0); Mean Platelet Volume 8.6; Monocytes # (A) 0.9 k/uL (0-1.0); Monocytes % (A) 11 %; Neutrophils # (A) 5.6 k/uL (1.3-7.7); Neutrophils % (A) 68 %; Platelet Count 151 k/uL (150-450); RBC 5.29 m/uL (4.30-5.90); RDW 14.5 % (11.5-15.5); WBC 8.3 k/uL (3.8-10.6)
[2019-04-27 06:53] LABS: Calcium 8.6 mg/dL (8.4-10.2); Potassium 4.8 mmol/L (3.5-5.1)
[2019-04-27] MEDS: PROPAFENONE 150 MG TAB PO SCH ×3 (08:15→23:09)
[2019-04-27] MEDS: ATORVASTATIN 80 MG TAB PO SCH (08:15)
[2019-04-27] MEDS: METOPROLOL TARTRATE 50 MG TAB PO SCH ×2 (08:15→21:00)
[2019-04-27] MEDS: COLCHICINE 0.6 MG EACH PO SCH ×2 (08:15→21:00)
[2019-04-27] MEDS: IBUPROFEN 600 MG TAB PO SCH ×3 (08:15→21:01)
[2019-04-27] MEDS: APIXABAN 5 MG TAB PO SCH ×2 (08:15→21:00)
[2019-04-27] MEDS: ANASTROZOLE 1 MG TAB PO SCH (12:55)
[2019-04-27] MEDS: ZOLPIDEM 5 MG TAB PO SCH (21:01)
--- NOTE | 2019-04-27 21:13 | PN ---
PROGRESS NOTE This patient was admitted with chest pain. Chest pain was increasing. His sedimentation rate and C-reactive protein are elevated. Heart rate is 68 per minute. The patient had a temperature of 99.7. Blood pressure is 103/68 mmHg. First and second heart sounds are normal. Lungs are clear to auscultation and percussion. Sedimentation rate is 28. C-reactive protein is significantly elevated. We will continue the patient on Motrin and colchicine and current medications. MMODL / IJN: [id number] /
--- NOTE | 2019-04-27 23:29 | PN ---
PROGRESS NOTE DATE OF SERVICE: 04/27/2019. PRESENTING COMPLAINT: Chest pain. INTERVAL HISTORY: This patient presented with what appears to be acute viral pericarditis. Chest pain is better. Does feel a bit tired. Patient is on colchicine and NSAIDs. Lying in bed. Up to the bathroom. REVIEW OF SYSTEMS: Done for constitutional, cardiovascular, GI, pulmonary; relevant findings as above. CURRENT MEDICATIONS: Reviewed that include colchicine and Motrin. PHYSICAL EXAMINATION: On examination, temperature 99.7, pulse 58, respirations 16, blood pressure 103/68, pulse ox 98% on room air. GENERAL APPEARANCE: Sitting up, tired. EYES: Pupils equal. Conjunctivae normal. NECK: JVD not raised. Mass not palpable. Respiratory effort normal. LUNGS: Decreased breath sounds. CARDIOVASCULAR: 1st and 2nd heart sounds. No edema. ABDOMEN: Soft nontender. Liver and spleen not palpable. PSYCHIATRY: Alert and oriented x3. Mood and affect normal. INVESTIGATIONS: White count 8.3, hemoglobin 4.8, BUN 21, creatinine 1.16. ASSESSMENT: 1. Acute viral pericarditis. 2. Paroxysmal atrial fibrillation. 3. Obesity. 4. Hyperlipidemia. 5. Hypotestosteronism. 6. Clinically acute viral pleurisy. PLAN: Continue medication and treatment plan. Care was discussed with the patient. MMODL / IJN: [id number] /
[2019-04-28] MEDS: IBUPROFEN 600 MG TAB PO SCH (09:26)
[2019-04-28] MEDS: APIXABAN 5 MG TAB PO SCH (09:26)
[2019-04-28] MEDS: PROPAFENONE 150 MG TAB PO SCH (09:27)
[2019-04-28] MEDS: ATORVASTATIN 80 MG TAB PO SCH (09:27)
[2019-04-28] MEDS: METOPROLOL TARTRATE 50 MG TAB PO SCH (09:27)
[2019-04-28] MEDS: COLCHICINE 0.6 MG EACH PO SCH (09:28)
[2019-04-28 09:47] VITALS: RESP 18
[2019-04-28 12:06] VITALS: PULSE 68
[2019-04-28 12:09] VITALS: BP 125/87; TEMP 98.9
[2019-04-28] MEDS: ANASTROZOLE 1 MG TAB PO SCH (12:10)
--- NOTE | 2019-04-28 14:54 | PN ---
PROGRESS NOTE This patient was admitted with chest pain. Patient chest pains are atypical chest pain. Patient is being treated for pericarditis. His chest pains are improved. First and second heart sounds are normal. Lungs are clear to auscultation and percussion. He remains in normal sinus rhythm. The patient will continue on Motrin and colchicine for 6 weeks and patient will be followed with Dr. Flores as an outpatient. MMODL / IJN: [id number] /
== END 2019-04-28 16:55 | disposition home or self-care (01) | DRG 316 ==
LOC: EC 04:24 → 1SOBS 09:39 → 3SCARD 09:49 → OBSVTOIN 04-27 09:00
PROVIDERS: ADMIT Hospitalist; ATTEND Hospitalist
DX: I30.1 Infective pericarditis (principal); I48.0 Paroxysmal atrial fibrillation; E78.5 Hyperlipidemia, unspecified; N52.9 Male erectile dysfunction, unspecified; E66.9 Obesity, unspecified; Z68.37 Body mass index [BMI] 37.0-37.9, adult; Z79.01 Long term (current) use of anticoagulants; Z79.82 Long term (current) use of aspirin; Z79.890 Hormone replacement therapy; Z79.899 Other long term (current) drug therapy; Z98.890 Other specified postprocedural states; Z88.5 Allergy status to narcotic agent; Z82.49 Family history of ischemic heart disease and other diseases of the circulatory system; Z83.3 Family history of diabetes mellitus; Z83.6 Family history of other diseases of the respiratory system; I25.10 Atherosclerotic heart disease of native coronary artery without angina pectoris; R09.1 Pleurisy
CPT/HCPCS: 36415; 71046; 71275; 80048; 80053; 82150; 83690; 83735; 84484; 85025; 85379; 85610; 85652; 85730; 86140; 93005; 93308; 96374; 99285

== ENCOUNTER → 2019-05-23 | Outpatient (CLI) | payer BC ==
--- NOTE | 2019-05-23 08:21 | US ---
EXAMINATION TYPE: US abdomen complete DATE OF EXAM: 05/23/2019 COMPARISON: NONE CLINICAL HISTORY: R74.8 Elevated liver enzymes. Elevated liver enzymes EXAM MEASUREMENTS: Liver Length: 15.9 cm Gallbladder Wall: 0.2 cm CBD: 0.4 cm Spleen: 11.8 cm Right Kidney: 11.1 x 5.7 x 4.8 cm Left Kidney: 10.1 x 5.4 x 4.7 cm Difficult and limited study due to patient body habitus Pancreas: obscured by overlying midline bowel gas Liver: limited visualization, scanned intercostally, visualized portions appears mildly heterogeneou s Gallbladder: visualized portions wnl, limited by rib shadowing Evidence for sonographic Pena's sign: no CBD: wnl Spleen: multiple small echogenic foci Right Kidney: 1.5 x 1.2 x 1.1cm hypoechoic area inferior pole Left Kidney: wnl Upper IVC: wnl Abd Aorta: proximal portion obscured, visualized portions of mid and distal appear wnl IMPRESSION: 1. Liver is mildly heterogeneous correlate with liver function studies to assess for hepatic steatosi s or hepatocellular disease. 2. Splenic granuloma 3. Lower pole right renal indeterminate hypoechoic nodule. Does not meet the criteria for a simple cy st. There is through transmission suggestive of a cystic lesion. Lack of meeting criteria for simple cyst may be technical and could be followed on a short-term basis with a 3 month ultrasound or with a postcontrast CT scan.
== END | disposition home or self-care (01) ==
LOC: RADUSWWP 06:45
PROVIDERS: ATTEND Family Medicine
DX: K66.8 Other specified disorders of peritoneum (principal); R74.8 Abnormal levels of other serum enzymes
CPT/HCPCS: 76700

== ENCOUNTER → 2019-11-27 | Outpatient (CLI) | payer BC ==
[2019-11-28 01:09] LABS: ACTH 15.6 pg/mL (0.00-45.99)
[2019-11-28 02:21] LABS: Luteinizing Hormone 1.8 mIU/mL; T4, Free (Free Thyroxine) 0.9 ng/dL (0.80-1.80)
== END | disposition home or self-care (01) ==
LOC: LABWHC1 16:18
PROVIDERS: ATTEND Internal Medicine Endocrinology, Diabetes & Metabolism
DX: E29.1 Testicular hypofunction (principal); R53.83 Other fatigue
CPT/HCPCS: 36415; 82024; 82533; 82607; 83002; 84403; 84439; 84443; 84480

== ENCOUNTER → 2020-05-06 | Outpatient (CLI) | payer BC ==
--- NOTE | 2020-05-06 21:32 | MR ---
EXAMINATION TYPE: MR shoulder LT wo con DATE OF EXAM: 05/06/2020 COMPARISON: Plain film 03/27/2020 HISTORY: Lt shoulder pain TECHNIQUE: Multiplanar, multisequence imaging of the left shoulder is performed without contrast. FINDINGS: Rotator Cuff: There is abnormal increased signal associated with the rotator cuff tendon at its inser tion, partial undersurface tear is suspected, there is associated tendon thickening suggestive of ten dinosis. Acromioclavicular Joint: There is a distal acromial spur. Acromioclavicular joint causes mass effect on the musculotendinous junction of supraspinatus. Glenohumeral Joint: Maintained Labrum: There is some increased signal at the level of the posterior labrum inferiorly axial image #1 2 and 13, difficult to exclude a tear. Biceps Tendon: The long head of biceps is in normal location within bicipital groove but is perched s omewhat as it courses centrally, there is some fluid signal present at this level. Bone marrow signal: No focal abnormal marrow signal is appreciated. Other: Some fluid signal present in the subacromial subdeltoid bursa. IMPRESSION: Partial undersurface tear of the rotator cuff, tendinosis. Difficult to exclude a small labral tear a s described, perched long head of biceps tendon and acromioclavicular joint arthropathy.
== END | disposition home or self-care (01) ==
LOC: RADMRIMAIN 16:04
PROVIDERS: ATTEND Orthopaedic Surgery
DX: M75.122 Complete rotator cuff tear or rupture of left shoulder, not specified as traumatic (principal); M12.812 Other specific arthropathies, not elsewhere classified, left shoulder

== ENCOUNTER → 2020-05-22 | Outpatient (CLI) | payer BC ==
[2020-05-22 15:03] LABS: Basophils # (A) 0.1 k/uL (0-0.2); Basophils % (A) 1 %; Eosinophils # (A) 0.2 k/uL (0-0.7); Eosinophils % (A) 3 %; HCT 48.6 % (39.0-53.0); HGB 16.1 gm/dL (13.0-17.5); Lymphocytes % (A) 29 %; MCH 30.1 pg (25.0-35.0); MCHC 33.2 g/dL (31.0-37.0); MCV 90.7 fL (80.0-100.0); Mean Platelet Volume 9.5; Monocytes # (A) 0.5 k/uL (0-1.0); Monocytes % (A) 7 %; Neutrophils # (A) 4.2 k/uL (1.3-7.7); Neutrophils % (A) 60 %; Platelet Count 170 k/uL (150-450); RBC 5.36 m/uL (4.30-5.90); RDW 12.6 % (11.5-15.5); WBC 7.1 k/uL (3.8-10.6)
[2020-05-22 15:21] LABS: Potassium 4.2 mmol/L (3.5-5.1)
== END | disposition home or self-care (01) ==
LOC: LABPAT 14:14
PROVIDERS: ATTEND Orthopaedic Surgery
DX: Z01.818 Encounter for other preprocedural examination (principal); M75.42 Impingement syndrome of left shoulder
CPT/HCPCS: 36415; 80051; 85025

== ENCOUNTER 2020-06-05 08:45 | Day surgery (SDC) | payer BC ==
[2020-06-03 14:37] VITALS: BMI 41.0
--- NOTE | 2020-06-04 14:02 | HP ---
HISTORY AND PHYSICAL DATE OF SURGERY: 06/05/2020 Raymon Womack is a 50-year-old patient seen with progressive left shoulder pain. We discussed treatment options. He elected to proceed with arthroscopy. Consent regarding the procedure was obtained. PAST MEDICAL HISTORY: Hyperlipidemia, hypertension, atrial fibrillation. PAST SURGICAL HISTORY: Knee arthroscopy. DAILY MEDICATIONS: Aspirin, atorvastatin, isosorbide, metoprolol. ALLERGIES: None. SOCIAL HISTORY: Denies current tobacco use. PHYSICAL EVALUATION OF THE LEFT SHOULDER: Flexion 140, abduction 110, external rotation is 40 with pain and weakness. There is tenderness along the anterolateral acromion and rotator cuff insertion site. Impingement sign is positive at 90 degrees. Drop-arm sign is positive. Distal neurovascular exam is intact. RADIOGRAPHS OF THE LEFT SHOULDER: Revealed a type 2 anterior acromion, severe osteoarthritic changes of the acromioclavicular joint. An MRI of the left shoulder revealed a partial rotator cuff tendon tear, acromioclavicular joint osteoarthritis and a perched biceps tendon. IMPRESSION: 1. Left shoulder impingement with rotator cuff tear. 2. Left shoulder acromioclavicular joint osteoarthritis. 3. Left shoulder partial long head biceps tendon tear. 4. Hypertension. 5. Hyperlipidemia. PLAN: Left shoulder arthroscopy, subacromial decompression, arthroscopic rotator cuff repair, Daija biceps tenotomy and debridement. MMODL / IJN: [id number] /
[~2020-06-05 08:45] MED LIST changes: +HYDROmorphone 0.5 MG/0.5 ML SYRINGE IVP PRN; +LIDOCAINE 1% (10MG/ML) FOR IV START INTRADERMA PRN; -ceFAZolin 2 GM in SODIUM CHLORIDE 0.9% 100 ML IVPB ONE; +ceFAZolin 3 GM in SODIUM CHLORIDE 0.9% 100 ML IVPB ONE; +fentaNYL (PF) 50 MCG/ML 2 ML AMP IVP PRN
[2020-06-05] MEDS ORDERED: ONDANSETRON 4 MG/2 ML VIAL ONE (09:33)
[2020-06-05] MEDS ORDERED: MIDAZOLAM 2 MG/2 ML VIAL IVP ONE (10:08)
--- NOTE | 2020-06-05 10:25 | P.ANPRN ---
Procedure Note - Anesthesia - Nerve Block Performed Left Interscalene Time Out Performed: Yes (10:07) Date of Procedure: 06/05/20 Procedure Start Time: Procedure Stop Time: Location of Patient: PreOp Indication: Acute Post-Operative Pain, Requested by Surgeon (Dr Carmona) Sedation Type: Sedate with meaningful contact maintained Preparation: Sterile Prep Position: Supine Catheter: None Needle Types: Pajunk (22g) Ultrasound used to visualize needle placement: Yes Ultrasound used to observe medication spread: Yes Injectate: 0.5% Ropivacaine (see comment for volume) (0.5% Ropvivacaine 20cc, Decadron 4mg) Blood Aspirated: No Pain Paresthesia on Injection Noted: No Resistance on Injection: Normal Image Stored and Saved: Yes Events: Uneventful and Well Tolerated
[2020-06-05] MEDS ORDERED: PROPOFOL 10 MG/ML 20 ML VIAL IV ONE (10:33)
[2020-06-05] MEDS ORDERED: SUCCINYLCHOLINE CHLORIDE VIAL 200 MG/10 ML VIAL IV ONE (10:33)
[2020-06-05] MEDS ORDERED: LIDOCAINE 1% INJ 10MG/ML (20 ML MDV) ONE (10:33)
[2020-06-05] MEDS ORDERED: fentaNYL (PF) 50 MCG/ML 2 ML AMP ONE (10:33)
[2020-06-05] MEDS ORDERED: DEXAMETHASONE SOD PHOSPHATE 4 MG/ML 1 ML VIAL ONE (10:33)
[2020-06-05] MEDS ORDERED: ROPIVACAINE 5 MG/ML 30 ML VIAL ONE (10:33)
--- NOTE | 2020-06-05 12:11 | P.OP ---
Date of Procedure: 06/05/20 Preoperative Diagnosis: Left shoulder impingement Postoperative Diagnosis: 1. Left shoulder rotator cuff tear 2. Left shoulder impingement 3. Left shoulder partial long head biceps tendon tear 4. Left shoulder superficial labral tear Procedure(s) Performed: 1. Left shoulder arthroscopic rotator cuff repair 2. Left shoulder arthroscopic subacromial decompression 3. Left shoulder arthroscopic biceps tenotomy 4. Left shoulder arthroscopic debridement labral tear Implants: 14.75 Arthrex swivel lock anchor Anesthesia: GETA, regional (Interscalene block) Surgeon: Edgard Carmona Radio Host #1: Silvano Parisi Estimated Blood Loss (ml): 7 Pathology: none sent Condition: stable Disposition: PACU Indications for Procedure: 50-year-old patient seen with progressive left shoulder pain. After having treatment options discussed, he elected to proceed with arthroscopy. Operative Findings: See description of procedure Description of Procedure: Patient underwent an interscalene block by department of anesthesia. The patient was then taken to the operative suite. The patient underwent a general anesthetic by the department of anesthesia. The patient was placed into a lateral position and secured. There was appropriate padding of the bony prominence. Left shoulder was then prepped and draped in normal sterile orthopedic fashion. We placed the extremity in 10 pounds of longitudinal traction. A posterior incision was now made for a posterior working portal site. The trocar and cannula were inserted into the glenohumeral joint. Arthroscopy was initiated. Spinal needle was now inserted anteriorly, to ascertain the anterior working portal site. An incision was now made in that area, a trocar was inserted followed by a probe. There was some superficial tearing of the anterior labrum. There was partial tearing and hyperemia long head biceps tendon. There were grade 1 chondral moist changes of the glenohumeral joint with no osteochondral tears present. I performed an arthroscopic biceps tenotomy. I debrided the superficial labral tears getting down to stable labral tissue. The residual labrum was probed and found to be stable. Instruments now removed from glenohumeral joint. Utilizing the posterior working portal site, the trocar and cannula were inserted into the subacromial space. Arthroscopy initiated. I made an incision 2 fingerbreadths lateral to the acromion. I introduced my trocar followed by my ArthroCare ablator. I now began ablating thick subacromial bursal tissue, which exposed the undersurface of the anterior acromion. There was diminished subacromial space. There was a very prominent anterior acromion. A motorized bur was introduced and a subacromial decompression was performed. I also excised some osteophytes off the inferior aspect of the distal clavicle. The AC joint was visualized and noted to be mildly arthritic. I now turned my attention to the rotator cuff tendon. There was an obvious small tear along the posterior aspect of the distal supraspinatus. I debrided that getting down to stable tendon tissue. The defect to measure 1.5 cm. I abraded the footprint with a motorized bur. I passed 3 everted mattress sutures through good bites of rotator cuff tendon. I punched a hole in the air the footprint for insertion of an anchor. With the assistance of Jonh LONG all 6 limbs of suture were passed through the eyelet of a 4.75 Arthrex swivel lock anchor. I now introduced the eyelet of the pre-punch hole. I held in position while Jonh LONG tensioned the sutures and deployed the anchor. The anchor had good fixation. All residual suture limbs were now clipped. We had good compression of the tendon along the entire footprint. I injected 1 mL Renyte intra- articular. Instruments now removed from the portal sites. All portal sites were approximated with nylon suture. Sterile dressings were applied followed by a shoulder sling. Silvano LONG assisted in this complex case. The patient was awakened, transferred to a bed, and taken to recovery in stable condition.
[2020-06-05 12:15] VITALS: TEMP 97
[2020-06-05 14:23] VITALS: RESP 16
[2020-06-05 15:24] LABS: Glucose,Whole Blood 156 mg/dL (75-99)
[2020-06-05 15:39] VITALS: BP 109/73; PULSE 65
== END 2020-06-05 16:08 | disposition home or self-care (01) ==
LOC: OR 08:45
PROVIDERS: ATTEND Orthopaedic Surgery
DX: M19.012 Primary osteoarthritis, left shoulder (principal); M75.42 Impingement syndrome of left shoulder; M75.102 Unspecified rotator cuff tear or rupture of left shoulder, not specified as traumatic; S46.112A Strain of muscle, fascia and tendon of long head of biceps, left arm, initial encounter; Z98.890 Other specified postprocedural states; X58.XXXA Exposure to other specified factors, initial encounter; I10 Essential (primary) hypertension; E78.5 Hyperlipidemia, unspecified; I48.91 Unspecified atrial fibrillation; G47.33 Obstructive sleep apnea (adult) (pediatric); Z79.82 Long term (current) use of aspirin; Z79.899 Other long term (current) drug therapy; Z88.5 Allergy status to narcotic agent
CPT/HCPCS: 29822; 29827; 64415; 76942; C1713; Q4212; J2250; J0330; J1100 ×2; J0690; J2405; J2001; J3010; J2795; J2704

== ENCOUNTER 2022-04-06 11:33 | Emergency (ER) | payer BC, OTHER ==
[2022-04-06 12:30] VITALS: BP 124/83; PULSE 62; RESP 16; TEMP 98.8
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
[2022-04-06] MEDS ORDERED: Acetaminophen-Codeine 300-30mg TAB PO STA (15:20)
[2022-04-06] MEDS ORDERED: KETOROLAC 15 MG/ML 1 ML VIAL IM STA (15:20)
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
== END 2022-04-06 15:55 | disposition home or self-care (01) ==
LOC: EC 11:33
DX: R07.9 Chest pain, unspecified (principal); M79.641 Pain in right hand; Z88.5 Allergy status to narcotic agent; V89.2XXA Person injured in unspecified motor-vehicle accident, traffic, initial encounter
CPT/HCPCS: 73030; 73130; 71046; 72125; 70450; 99284; 96372; J1885

== ENCOUNTER → 2024-05-30 | Outpatient (CLI) | payer BC | LOC: CPPFTMAIN 16:41 | PROVIDERS: ATTEND Family Medicine | DX: R06.09 Other forms of dyspnea (principal); Z88.5 Allergy status to narcotic agent | CPT/HCPCS: 94060; 94726; 94729 ==